=== PATIENT | female | born 1945 | race African-American/Black ===

== ENCOUNTER 2017-12-25 16:24 | Inpatient (IN) | payer MEDICARE, BC ==
[~2017-12-25] VITALS: Ht 162.6 cm; Wt 91.2 kg
[2017-12-25] MEDS ORDERED: ACETAMINOPHEN 650MG SUPP ONE (17:24)
[2017-12-25] MEDS ORDERED: CEFTRIAXONE 1 G PREMIX 50 ML IV NR (18:00)
[2017-12-25] MEDS ORDERED: LEVOFLOXACIN 500MG PREMIX 100 ML IV NR (18:00)
[2017-12-25] MEDS ORDERED: ACETAMINOPHEN 650MG SUPP PR STA (18:03)
[2017-12-25 18:05] LABS: HEMATOCRIT. 33.1 % (36.0-48.0); HEMOGLOBIN. 10.9 g/dL (12.0-16.0); MEAN CORPUSCULAR HEMOGLOBIN 28.4 pg (28.0-32.0); MEAN CORPUSCULAR VOLUME 86.4 fL (81.0-99.0); MEAN PLATELET VOLUME 8.5 fl (7.4-10.4); PLATELET 157 x1000/uL (130-400); RED BLOOD CELL COUNT 3.83 mill/uL (4.2-5.4); RED CELL DISTRIBUTION WIDTH 13.6 % (11.6-14.6)
[2017-12-25 18:09] LABS: CARBON DIOXIDE 22 mEq/L (21-32); CHLORIDE 96 mEq/L (98-107)
[2017-12-25 18:17] LABS: TROPONIN I 0.03 ng/mL (0.00-0.04)
[2017-12-25 18:35] LABS: PLATELET ESTIMATE NORMAL
[2017-12-25] MEDS: SODIUM CHLORIDE 0.9% 2,300 ML IV NR ×2 (20:13→20:18)
[2017-12-25 20:21] LABS: CLARITY URINE CLEAR (CLEAR); COLOR URINE YELLOW (YELLOW); KETONES URINE 1+ (NEGATIVE); LEUKOCYTE ESTERASE URINE 1+ (NEGATIVE); NITRITE URINE NEGATIVE (NEGATIVE); OCCULT BLOOD URINE 1+ (NEGATIVE); PROTEIN URINE 2+ (NEGATIVE); SPECIFIC GRAVITY URINE 1.017 (1.005-1.030)
[2017-12-25] MEDS ORDERED: ACETAMINOPHEN 650MG SUPP PR NR (20:30)
[2017-12-25] MEDS ORDERED: GUAIFENESIN 200MG/10ML SUGAR FREE UDC PO PRN (21:30)
[2017-12-25] MEDS ORDERED: PIPERACILLIN/TAZ 3.375G PREMIX 50 ML IV SCH (21:30)
[2017-12-25] MEDS ORDERED: DIPHENHYDRAMINE 50MG/ML VIAL IV PRN (21:30)
[2017-12-25] MEDS ORDERED: IPRATROPIUM/ALBUTEROL 0.5-3(2.5)MG/3ML NEB INH PRN (21:30)
[2017-12-25] MEDS ORDERED: ONDANSETRON HCL 4MG/2ML VIAL IV PRN (21:30)
[2017-12-25] MEDS ORDERED: PIPERACILLIN/TAZ 2.25G PREMIX 50 ML IV NR (22:00)
[2017-12-26] VITALS (15 sets, daily range): BP systolic 142–174; BP diastolic 59–83
[2017-12-26 05:17] LABS: HEMATOCRIT. 28.1 % (36.0-48.0); HEMOGLOBIN. 9.3 g/dL (12.0-16.0); MEAN CORPUSCULAR HEMOGLOBIN 28.5 pg (28.0-32.0); MEAN CORPUSCULAR VOLUME 86.2 fL (81.0-99.0); MEAN PLATELET VOLUME 8.1 fl (7.4-10.4); PLATELET 121 x1000/uL (130-400); RED BLOOD CELL COUNT 3.26 mill/uL (4.2-5.4); RED CELL DISTRIBUTION WIDTH 13.5 % (11.6-14.6)
[2017-12-26 05:37] LABS: CARBON DIOXIDE 22 mEq/L (21-32); CHLORIDE 100 mEq/L (98-107)
[2017-12-26 06:18] LABS: PLATELET ESTIMATE NORMAL
[2017-12-26] MEDS ORDERED: DEXTROSE 50% WATER 50ML SYRINGE IV PRN (11:15)
[2017-12-26 12:33] LABS: HEPATITIS B SURFACE ANTIGEN NEGATIVE
[2017-12-26] MEDS: INSULIN LISPRO 100 UNITS/ML SUBCUT SCH ×3 (12:50→22:33)
[2017-12-26 12:52] LABS: INR 1.1; PARTIAL THROMBOPLASTIN TIME 33.4 sec (23.4-31.0); PROTHROMBIN TIME 11.9 sec (9.4-11.6)
[2017-12-26] MEDS: BLOOD SUGAR DIAGNOSTIC STRIP TEST SCH ×3 (12:59→22:33)
[2017-12-26 13:00] LABS: HEPATITIS B CORE AB IGM NEGATIVE
[2017-12-26] MEDS ORDERED: LIDOCAINE HCL 1% 20ML VIAL (Pyxis) INJ ONE (13:01)
[2017-12-26] MEDS ORDERED: SODIUM BICARBONATE 4% (2.4MEQ) 5ML VIAL IV ONE (13:01)
[2017-12-26 13:02] LABS: HEPATITIS A AB IGM NEGATIVE (NEGATIVE)
[2017-12-26] MEDS ORDERED: FENTANYL CITRATE/PF 50MCG/ML 2ML VIAL IV ONE (14:15)
[2017-12-26] MEDS ORDERED: FENTANYL CITRATE/PF 50MCG/ML 2ML VIAL ONE (14:16)
[2017-12-26] MEDS: AMLODIPINE 10MG TABLET PO SCH (15:05)
[2017-12-26] MEDS: PIPERACILLIN/TAZ 2.25G PREMIX 50 ML IV SCH ×3 (15:05→23:41)
[2017-12-26] MEDS: ASPIRIN 81MG EC TABLET PO SCH (15:06)
[2017-12-26] MEDS: FLUCONAZOLE 100 MG/50ML BAG 100 MG in BAG 0 EACH IV SCH (16:28)
[2017-12-27] VITALS (10 sets, daily range): BP systolic 115–167; BP diastolic 59–98
[2017-12-27] MEDS: PIPERACILLIN/TAZ 2.25G PREMIX 50 ML IV SCH ×3 (06:32→23:09)
[2017-12-27] MEDS: BLOOD SUGAR DIAGNOSTIC STRIP TEST SCH ×4 (06:33→20:22)
[2017-12-27] MEDS: ASPIRIN 81MG EC TABLET PO SCH (09:04)
[2017-12-27] MEDS: AMLODIPINE 10MG TABLET PO SCH (09:04)
[2017-12-27] MEDS: INSULIN LISPRO 100 UNITS/ML SUBCUT SCH ×4 (09:09→20:21)
[2017-12-27 10:54] LABS: HEMATOCRIT. 25.7 % (36.0-48.0); HEMOGLOBIN. 8.7 g/dL (12.0-16.0); MEAN CORPUSCULAR HEMOGLOBIN 28.8 pg (28.0-32.0); MEAN CORPUSCULAR VOLUME 85.6 fL (81.0-99.0); MEAN PLATELET VOLUME 8.6 fl (7.4-10.4); PLATELET 106 x1000/uL (130-400); RED CELL DISTRIBUTION WIDTH 13.4 % (11.6-14.6)
[2017-12-27] MEDS: FLUCONAZOLE 100 MG/50ML BAG 100 MG in BAG 0 EACH IV SCH (12:38)
[2017-12-27 13:20] LABS: PLATELET ESTIMATE SLIGHTLY DECREASED
[2017-12-27] MEDS: ACETAMINOPHEN 325MG TABLET PO PRN (13:36)
[2017-12-27] MEDS ORDERED: SODIUM CHLORIDE 0.9% 250 ML IV ONE (14:00)
[2017-12-27 14:29] LABS: BG BASE EXCESS -2.8 mmol/L (-2.0-2.0); BG CARBOXYHEMOGLOBIN 0.1 % (0.5-1.5); BG DEOXYHEMOGLOBIN 8.4 % (0.0-5.0); BG HCO3 ACT 19.8 mmol/L (22.0-26.0); BG METHEMOGLOBIN 0.6 % (0.0-1.5); BG OXYGEN SATURATION 91.5 % (92.0-98.5); BG OXYHEMOGLOBIN 90.9 % (94.0-97.0); BG PCO2 26.6 mmHg (35.0-45.0); BG PH 7.489 (7.350-7.450); BG PO2 60.5 mmHg (75.0-100.0); BG SAMPLE SITE RIGHT RADIAL; BG TOTAL HEMOGLOBIN 9.2 g/dL (12.0-18.0); BG VENT MODE NASAL CANNULA
[2017-12-27 14:41] LABS: HEMATOCRIT. 25.2 % (36.0-48.0); HEMOGLOBIN. 8.5 g/dL (12.0-16.0); MEAN CORPUSCULAR HEMOGLOBIN 28.6 pg (28.0-32.0); MEAN CORPUSCULAR VOLUME 85.3 fL (81.0-99.0); MEAN PLATELET VOLUME 8.6 fl (7.4-10.4); PLATELET 106 x1000/uL (130-400); RED BLOOD CELL COUNT 2.96 mill/uL (4.2-5.4); RED CELL DISTRIBUTION WIDTH 13.8 % (11.6-14.6)
[2017-12-27] MEDS: CLONIDINE 0.1MG TABLET PO PRN (14:46)
[2017-12-27 15:15] LABS: PLATELET ESTIMATE DECREASED
[2017-12-27] MEDS: SODIUM CHLORIDE 0.9% 1,000 ML IV SCH (16:52)
[2017-12-27] MEDS: MICAFUNGIN 100 MG in SODIUM CHLORIDE 0.9% 100 ML IV SCH (17:46)
[2017-12-27] MEDS ORDERED: HEPARIN SODIUM 1,000 UNIT/1ML VIAL IV NR (22:00)
[2017-12-28] VITALS (12 sets, daily range): BP systolic 123–148; BP diastolic 29–87
[2017-12-28] MEDS: PIPERACILLIN/TAZ 2.25G PREMIX 50 ML IV SCH ×2 (05:28→13:33)
[2017-12-28 06:46] LABS: HEMATOCRIT. 22.9 % (36.0-48.0); HEMOGLOBIN. 7.7 g/dL (12.0-16.0); MEAN CORPUSCULAR HEMOGLOBIN 29.1 pg (28.0-32.0); MEAN PLATELET VOLUME 9.2 fl (7.4-10.4); PLATELET 70 x1000/uL (130-400); RED BLOOD CELL COUNT 2.67 mill/uL (4.2-5.4); RED CELL DISTRIBUTION WIDTH 13.8 % (11.6-14.6)
[2017-12-28 07:14] LABS: INR 1.2; PARTIAL THROMBOPLASTIN TIME 31.6 sec (23.4-31.0)
[2017-12-28] MEDS ORDERED: LIDOCAINE HCL 1% 20ML VIAL (Pyxis) INJ ONE (07:36)
[2017-12-28] MEDS: BLOOD SUGAR DIAGNOSTIC STRIP TEST SCH ×4 (07:58→21:52)
[2017-12-28] MEDS: AMLODIPINE 10MG TABLET PO SCH (09:25)
[2017-12-28] MEDS: ASPIRIN 81MG EC TABLET PO SCH (09:25)
[2017-12-28] MEDS: INSULIN LISPRO 100 UNITS/ML SUBCUT SCH ×4 (09:27→22:32)
[2017-12-28 10:08] LABS: PLATELET ESTIMATE DECREASED
[2017-12-28] MEDS: MICAFUNGIN 100 MG in SODIUM CHLORIDE 0.9% 100 ML IV SCH (17:25)
[2017-12-29] VITALS (12 sets, daily range): BP systolic 124–158; BP diastolic 57–82
[2017-12-29 06:38] LABS: BASOPHILS % 0.2 % (0.0-2.0); EOSINOPHILS % 1.7 % (0.0-5.0); HEMATOCRIT. 24.2 % (36.0-48.0); HEMOGLOBIN. 8.3 g/dL (12.0-16.0); LYMPHOCYTES % 8.3 % (20.0-50.0); MEAN CORPUSCULAR HEMOGLOBIN 29.2 pg (28.0-32.0); MEAN CORPUSCULAR VOLUME 85.5 fL (81.0-99.0); MEAN PLATELET VOLUME 9.1 fl (7.4-10.4); MONOCYTES % 7.6 % (2.0-8.0); NEUTROPHILS % 82.2 % (40.0-76.0); PLATELET 70 x1000/uL (130-400); RED BLOOD CELL COUNT 2.84 mill/uL (4.2-5.4); RED CELL DISTRIBUTION WIDTH 13.5 % (11.6-14.6)
[2017-12-29] MEDS: DOCUSATE SODIUM 100MG CAPSULE PO PRN (06:54)
[2017-12-29] MEDS: SODIUM CHLORIDE 0.9% 1,000 ML IV SCH (06:55)
[2017-12-29] MEDS: BLOOD SUGAR DIAGNOSTIC STRIP TEST SCH ×4 (07:30→20:45)
[2017-12-29] MEDS: INSULIN LISPRO 100 UNITS/ML SUBCUT SCH ×4 (08:00→20:45)
[2017-12-29] MEDS: AMLODIPINE 10MG TABLET PO SCH (09:00)
[2017-12-29] MEDS: ASPIRIN 81MG EC TABLET PO SCH (09:00)
[2017-12-29] MEDS ORDERED: HEPARIN SODIUM 1,000 UNIT/1ML VIAL IV NR (09:36)
[2017-12-29] MEDS: MICAFUNGIN 100 MG in SODIUM CHLORIDE 0.9% 100 ML IV SCH (13:41)
[2017-12-29] MEDS: CLONIDINE 0.1MG TABLET PO PRN (16:59)
[2017-12-29] MEDS: ACETAMINOPHEN 325MG TABLET PO PRN (17:38)
[2017-12-30] VITALS (10 sets, daily range): BP systolic 122–152; BP diastolic 59–80
[2017-12-30 06:08] LABS: HEMATOCRIT. 23.2 % (36.0-48.0); HEMOGLOBIN. 7.9 g/dL (12.0-16.0); MEAN CORPUSCULAR HEMOGLOBIN 29.2 pg (28.0-32.0); MEAN CORPUSCULAR VOLUME 85.5 fL (81.0-99.0); MEAN PLATELET VOLUME 9.2 fl (7.4-10.4); PLATELET 52 x1000/uL (130-400); RED BLOOD CELL COUNT 2.72 mill/uL (4.2-5.4); RED CELL DISTRIBUTION WIDTH 13.5 % (11.6-14.6)
[2017-12-30] MEDS: SODIUM CHLORIDE 0.9% 1,000 ML IV SCH (06:43)
[2017-12-30] MEDS: BLOOD SUGAR DIAGNOSTIC STRIP TEST SCH ×4 (08:25→21:00)
[2017-12-30] MEDS: ASPIRIN 81MG EC TABLET PO SCH (08:38)
[2017-12-30] MEDS: AMLODIPINE 10MG TABLET PO SCH (08:38)
[2017-12-30] MEDS: INSULIN LISPRO 100 UNITS/ML SUBCUT SCH ×4 (08:48→21:11)
[2017-12-30 10:32] LABS: PLATELET ESTIMATE MARKEDLY DECREASED
[2017-12-30] MEDS: MICAFUNGIN 100 MG in SODIUM CHLORIDE 0.9% 100 ML IV SCH (13:04)
[2017-12-31] VITALS (8 sets, daily range): BP systolic 147–175; BP diastolic 66–88
[2017-12-31] MEDS: DOCUSATE SODIUM 100MG CAPSULE PO PRN (06:08)
[2017-12-31 06:43] LABS: HEMATOCRIT. 23.2 % (36.0-48.0); HEMOGLOBIN. 7.9 g/dL (12.0-16.0); MEAN CORPUSCULAR HEMOGLOBIN 28.8 pg (28.0-32.0); MEAN CORPUSCULAR VOLUME 84.8 fL (81.0-99.0); MEAN PLATELET VOLUME 9.6 fl (7.4-10.4); PLATELET 57 x1000/uL (130-400); RED BLOOD CELL COUNT 2.73 mill/uL (4.2-5.4); RED CELL DISTRIBUTION WIDTH 13.5 % (11.6-14.6)
[2017-12-31] MEDS: BLOOD SUGAR DIAGNOSTIC STRIP TEST SCH ×2 (07:30→12:26)
[2017-12-31] MEDS: INSULIN LISPRO 100 UNITS/ML SUBCUT SCH ×2 (08:00→14:51)
[2017-12-31 12:33] LABS: PLATELET ESTIMATE DECREASED
[2017-12-31] MEDS: AMLODIPINE 10MG TABLET PO SCH (14:42)
[2017-12-31] MEDS: ASPIRIN 81MG EC TABLET PO SCH (14:42)
[2017-12-31] MEDS: MICAFUNGIN 100 MG in SODIUM CHLORIDE 0.9% 100 ML IV SCH (15:07)
[2017-12-31] MEDS ORDERED: EPOETIN ALFA 10000UNITS/ML VIAL SUBCUT SCH (21:00)
== END 2017-12-31 17:00 | DRG 871 ==
LOC: ER 16:38 → SUPCPDRO 21:28 → 6WST 21:41 → 5EST 12-27 15:13
PROVIDERS: ADMIT Hospitalist; ATTEND Hospitalist
PROC: 0JH63XZ Insertion of Tunneled Vascular Access Device into Chest Subcutaneous Tissue and Fascia, Percutaneous Approach (ICD-10-PCS; principal; 2017-12-26)
PROC: 02HV33Z Insertion of Infusion Device into Superior Vena Cava, Percutaneous Approach (ICD-10-PCS; 2017-12-26)
PROC: 5A1D70Z Performance of Urinary Filtration, Intermittent, Less than 6 Hours Per Day (ICD-10-PCS; 2017-12-26)
PROC: B5181ZA Fluoroscopy of Superior Vena Cava using Low Osmolar Contrast, Guidance (ICD-10-PCS; 2017-12-26)
PROC: 5A1D70Z Performance of Urinary Filtration, Intermittent, Less than 6 Hours Per Day (ICD-10-PCS; 2017-12-27)
PROC: 02HV33Z Insertion of Infusion Device into Superior Vena Cava, Percutaneous Approach (ICD-10-PCS; 2017-12-28)
PROC: 0JPT3XZ Removal of Tunneled Vascular Access Device from Trunk Subcutaneous Tissue and Fascia, Percutaneous Approach (ICD-10-PCS; 2017-12-28)
PROC: 02PYX3Z Removal of Infusion Device from Great Vessel, External Approach (ICD-10-PCS; 2017-12-28)
PROC: 5A1D70Z Performance of Urinary Filtration, Intermittent, Less than 6 Hours Per Day (ICD-10-PCS; 2017-12-29)
DX: A41.9 Sepsis, unspecified organism (principal); E43 Unspecified severe protein-calorie malnutrition; N17.9 Acute kidney failure, unspecified; J81.1 Chronic pulmonary edema; E11.65 Type 2 diabetes mellitus with hyperglycemia; D69.6 Thrombocytopenia, unspecified; E11.22 Type 2 diabetes mellitus with diabetic chronic kidney disease; E87.1 Hypo-osmolality and hyponatremia; N18.6 End stage renal disease; B37.49 Other urogenital candidiasis; I12.0 Hypertensive chronic kidney disease with stage 5 chronic kidney disease or end stage renal disease; N39.0 Urinary tract infection, site not specified; E87.5 Hyperkalemia; D63.1 Anemia in chronic kidney disease; E66.9 Obesity, unspecified; F03.90 Unspecified dementia, unspecified severity, without behavioral disturbance, psychotic disturbance, mood disturbance, and anxiety; Z82.49 Family history of ischemic heart disease and other diseases of the circulatory system; Z99.2 Dependence on renal dialysis; Z91.15 Patient's noncompliance with renal dialysis; Z85.3 Personal history of malignant neoplasm of breast; Z68.34 Body mass index [BMI] 34.0-34.9, adult
CPT/HCPCS: 36415; 36569; 36589; 36600; 71045; 76770; 76937; 77001; 80048; 80053; 81001; 82375; 82805; 82962; 83605; 84484; 85025; 85610; 85730; 86705; 86709; 86803; 87040; 87086; 87106; 87340; 87804; 93306; 93970; 96361; 96365; 96366; 96367; 96368; 99291; C1750; C1752; C1769; J0696; J1450; J1642; J1644; J1815; J1956; J2248; J2543; J3010; J3490; J7030; J7040; J7050; J7620; A4315

== ENCOUNTER 2018-02-04 15:20 | Inpatient (IN) | payer MEDICARE, BC ==
[~2018-02-04] VITALS: Ht 162.6 cm; Wt 75.3 kg
[2018-02-04 14:30] VITALS: BP 179/102
[~2018-02-04 15:20] MED LIST: ACET-2178 PO; AMLO10TA80 PO; ASPI-1159 PO; ATROV INH; CARV3.1242 PO; CLON0.1T PO; DIPH25CA83 PO; DOCU-150 PO; GUAI-735 PO; LACT10SO6 MT; MOM PO; ONDA4SOL2 PO; POLY250017 PO; SEVE800T8 PO
[2018-02-04] MEDS ORDERED: CLONIDINE 0.1MG TABLET PO PRN (17:00)
[2018-02-04] MEDS: BLOOD SUGAR DIAGNOSTIC STRIP TEST SCH ×2 (17:00→21:06)
[2018-02-04] MEDS ORDERED: ACETAMINOPHEN 650MG/20.3ML UDC PO PRN (17:00)
[2018-02-04] MEDS ORDERED: LACTULOSE 20G/30ML UDC PO PRN (17:00)
[2018-02-04] MEDS ORDERED: MAGNESIUM HYDROXIDE 400MG/5ML 30ML UDC PO PRN (17:00)
[2018-02-04] MEDS: INSULIN LISPRO 100 UNITS/ML SUBCUT SCH ×2 (17:00→21:16)
[2018-02-04] MEDS ORDERED: DEXTROSE 50% WATER 50ML SYRINGE IV PRN (17:00)
[2018-02-04] MEDS ORDERED: ONDANSETRON HCL 4MG/2ML VIAL IV PRN (17:20)
[2018-02-04 17:49] VITALS: BP 179/102
[2018-02-04] MEDS: DOCUSATE SODIUM 100MG CAPSULE PO SCH (18:39)
[2018-02-04] MEDS: RIVAROXABAN 15 MG TABLET PO SCH (18:39)
[2018-02-04 20:00] VITALS: BP 149/62
[2018-02-04] MEDS ORDERED: NA PHOS,M-B/NA PHOS,DI-BA ENEMA 118ML PR PRN (21:00)
[2018-02-04] MEDS: CARVEDILOL 3.125 MG TABLET PO SCH (21:22)
[2018-02-04] MEDS: PHENYLEPHRINE/SHK LV/MO/PET,WH RECTAL OINT 30GM PR SCH (21:23)
[2018-02-04] MEDS: MICAFUNGIN 100 MG in SODIUM CHLORIDE 0.9% 100 ML IV SCH (21:23)
[2018-02-05] MEDS: PHENYLEPHRINE/SHK LV/MO/PET,WH RECTAL OINT 30GM PR SCH ×4 (06:11→18:54)
[2018-02-05] MEDS: BLOOD SUGAR DIAGNOSTIC STRIP TEST SCH ×4 (06:11→21:39)
[2018-02-05] MEDS: PANTOPRAZOLE 40MG DR TABLET PO SCH (06:12)
[2018-02-05 07:17] LABS: BASOPHILS % 1.4 % (0.0-2.0); EOSINOPHILS % 7.6 % (0.0-5.0); HEMATOCRIT. 28.8 % (36.0-48.0); HEMOGLOBIN. 9.7 g/dL (12.0-16.0); LYMPHOCYTES % 22.6 % (20.0-50.0); MEAN CORPUSCULAR VOLUME 89.2 fL (81.0-99.0); MEAN PLATELET VOLUME 7.8 fl (7.4-10.4); MONOCYTES % 9.5 % (2.0-8.0); NEUTROPHILS % 58.9 % (40.0-76.0); PLATELET 242 x1000/uL (130-400); RED BLOOD CELL COUNT 3.23 mill/uL (4.2-5.4); RED CELL DISTRIBUTION WIDTH 16.3 % (11.6-14.6)
[2018-02-05] MEDS: INSULIN LISPRO 100 UNITS/ML SUBCUT SCH ×4 (07:38→21:45)
[2018-02-05 07:53] LABS: CHLORIDE 106 mEq/L (98-107)
[2018-02-05 08:00] VITALS: BP 179/71
[2018-02-05] MEDS: RIVAROXABAN 15 MG TABLET PO SCH ×2 (09:07→17:20)
[2018-02-05] MEDS: ASPIRIN 81MG EC TABLET PO SCH (09:07)
[2018-02-05] MEDS: DOCUSATE SODIUM 100MG CAPSULE PO SCH ×2 (09:07→17:20)
[2018-02-05] MEDS: AMLODIPINE 10MG TABLET PO SCH (09:08)
[2018-02-05] MEDS: CARVEDILOL 3.125 MG TABLET PO SCH (09:08)
[2018-02-05] MEDS ORDERED: HYDROCORTISONE ACETATE 25MG SUPP PR STA (11:00)
[2018-02-05] MEDS ORDERED: POTASSIUM CHLORIDE 20MEQ TABLET SR PO SCH (12:30)
[2018-02-05 13:14] LABS: BASOPHILS % 1.1 % (0.0-2.0); HEMATOCRIT. 28.3 % (36.0-48.0); HEMOGLOBIN. 9.6 g/dL (12.0-16.0); LYMPHOCYTES % 20.5 % (20.0-50.0); MEAN CORPUSCULAR HEMOGLOBIN 30.3 pg (28.0-32.0); MEAN CORPUSCULAR VOLUME 89.7 fL (81.0-99.0); MEAN PLATELET VOLUME 7.8 fl (7.4-10.4); MONOCYTES % 9.1 % (2.0-8.0); NEUTROPHILS % 63.3 % (40.0-76.0); PLATELET 238 x1000/uL (130-400); RED BLOOD CELL COUNT 3.16 mill/uL (4.2-5.4); RED CELL DISTRIBUTION WIDTH 16.7 % (11.6-14.6)
[2018-02-05 20:00] VITALS: BP 156/74
[2018-02-05] MEDS: CARVEDILOL 6.25 MG TABLET PO SCH (21:39)
[2018-02-05] MEDS: POLYETHYLENE GLYCOL 3350 (17GM) 1 DOSE PACK PO SCH (21:39)
[2018-02-05] MEDS: MICAFUNGIN 100 MG in SODIUM CHLORIDE 0.9% 100 ML IV SCH (21:40)
[2018-02-06] MEDS: PHENYLEPHRINE/SHK LV/MO/PET,WH RECTAL OINT 30GM PR SCH ×4 (00:03→18:27)
[2018-02-06] MEDS: PANTOPRAZOLE 40MG DR TABLET PO SCH (05:44)
[2018-02-06] MEDS: INSULIN LISPRO 100 UNITS/ML SUBCUT SCH ×4 (05:50→22:18)
[2018-02-06] MEDS: BLOOD SUGAR DIAGNOSTIC STRIP TEST SCH ×4 (05:50→21:00)
[2018-02-06 08:00] VITALS: BP 164/62
[2018-02-06] MEDS: DOCUSATE SODIUM 100MG CAPSULE PO SCH ×2 (09:26→18:26)
[2018-02-06] MEDS: RIVAROXABAN 15 MG TABLET PO SCH ×2 (09:26→18:26)
[2018-02-06] MEDS: ASPIRIN 81MG EC TABLET PO SCH (09:26)
[2018-02-06] MEDS: CARVEDILOL 6.25 MG TABLET PO SCH ×2 (09:27→22:03)
[2018-02-06] MEDS: AMLODIPINE 10MG TABLET PO SCH (09:27)
[2018-02-06 12:29] LABS: BASOPHILS % 1.4 % (0.0-2.0); EOSINOPHILS % 5.9 % (0.0-5.0); HEMATOCRIT. 29.6 % (36.0-48.0); HEMOGLOBIN. 9.8 g/dL (12.0-16.0); LYMPHOCYTES % 20.9 % (20.0-50.0); MEAN CORPUSCULAR HEMOGLOBIN 29.7 pg (28.0-32.0); MEAN PLATELET VOLUME 7.1 fl (7.4-10.4); MONOCYTES % 7.6 % (2.0-8.0); NEUTROPHILS % 64.2 % (40.0-76.0); PLATELET 268 x1000/uL (130-400); RED BLOOD CELL COUNT 3.29 mill/uL (4.2-5.4); RED CELL DISTRIBUTION WIDTH 17.1 % (11.6-14.6)
[2018-02-06 20:00] VITALS: BP 188/89
[2018-02-06] MEDS: POLYETHYLENE GLYCOL 3350 (17GM) 1 DOSE PACK PO SCH (22:02)
[2018-02-06] MEDS: MICAFUNGIN 100 MG in SODIUM CHLORIDE 0.9% 100 ML IV SCH (22:03)
[2018-02-07] MEDS: PHENYLEPHRINE/SHK LV/MO/PET,WH RECTAL OINT 30GM PR SCH ×4 (02:28→16:58)
[2018-02-07] MEDS: BLOOD SUGAR DIAGNOSTIC STRIP TEST SCH ×4 (06:38→21:49)
[2018-02-07] MEDS: PANTOPRAZOLE 40MG DR TABLET PO SCH (06:39)
[2018-02-07] MEDS: INSULIN LISPRO 100 UNITS/ML SUBCUT SCH ×4 (06:56→21:00)
[2018-02-07 07:11] LABS: CLARITY URINE TURBID (CLEAR); COLOR URINE RED (YELLOW); KETONES URINE NEGATIVE (NEGATIVE); LEUKOCYTE ESTERASE URINE 2+ (NEGATIVE); NITRITE URINE POSITIVE (NEGATIVE); OCCULT BLOOD URINE 3+ (NEGATIVE); PH URINE 5.5 (4.5-8.0); PROTEIN URINE 2+ (NEGATIVE); UROBILINOGEN URINE 0.2 E.U./dL (0.2-1.0)
[2018-02-07 07:32] LABS: BASOPHILS % 1.3 % (0.0-2.0); EOSINOPHILS % 7.3 % (0.0-5.0); HEMATOCRIT. 24.9 % (36.0-48.0); HEMOGLOBIN. 8.5 g/dL (12.0-16.0); LYMPHOCYTES % 24.9 % (20.0-50.0); MEAN CORPUSCULAR HEMOGLOBIN 30.5 pg (28.0-32.0); MEAN PLATELET VOLUME 7.8 fl (7.4-10.4); MONOCYTES % 10.5 % (2.0-8.0); PLATELET 212 x1000/uL (130-400); RED BLOOD CELL COUNT 2.77 mill/uL (4.2-5.4); RED CELL DISTRIBUTION WIDTH 16.8 % (11.6-14.6)
[2018-02-07 08:00] VITALS: BP 116/62
[2018-02-07 08:48] LABS: PHOSPHORUS 3.2 mg/dL (2.5-4.9)
[2018-02-07] MEDS: AMLODIPINE 10MG TABLET PO SCH (09:47)
[2018-02-07] MEDS: DOCUSATE SODIUM 100MG CAPSULE PO SCH ×2 (09:47→16:58)
[2018-02-07] MEDS: ASPIRIN 81MG EC TABLET PO SCH (09:47)
[2018-02-07] MEDS: RIVAROXABAN 15 MG TABLET PO SCH ×2 (09:49→16:58)
[2018-02-07] MEDS: CARVEDILOL 6.25 MG TABLET PO SCH ×2 (09:49→21:56)
[2018-02-07 20:00] VITALS: BP 127/62
[2018-02-07] MEDS: POLYETHYLENE GLYCOL 3350 (17GM) 1 DOSE PACK PO SCH (21:56)
[2018-02-07] MEDS: MICAFUNGIN 100 MG in SODIUM CHLORIDE 0.9% 100 ML IV SCH (21:56)
[2018-02-08] MEDS: PHENYLEPHRINE/SHK LV/MO/PET,WH RECTAL OINT 30GM PR SCH ×4 (02:46→18:00)
[2018-02-08] MEDS: BLOOD SUGAR DIAGNOSTIC STRIP TEST SCH ×4 (06:34→21:59)
[2018-02-08] MEDS: INSULIN LISPRO 100 UNITS/ML SUBCUT SCH ×4 (06:40→22:07)
[2018-02-08 08:00] VITALS: BP 143/64
[2018-02-08] MEDS ORDERED: FAMOTIDINE 20MG TABLET PO SCH (09:00)
[2018-02-08] MEDS: ASPIRIN 81MG EC TABLET PO SCH (09:13)
[2018-02-08] MEDS: RIVAROXABAN 15 MG TABLET PO SCH ×2 (09:13→17:32)
[2018-02-08] MEDS: DOCUSATE SODIUM 100MG CAPSULE PO SCH ×2 (09:13→17:32)
[2018-02-08] MEDS: CARVEDILOL 6.25 MG TABLET PO SCH ×2 (09:13→22:02)
[2018-02-08] MEDS: AMLODIPINE 10MG TABLET PO SCH (09:13)
[2018-02-08 18:00] LABS: FOLIC ACID (FOLATE) SERUM 5.9 ng/mL (>5.38)
[2018-02-08 20:00] VITALS: BP 145/69
[2018-02-08] MEDS: POLYETHYLENE GLYCOL 3350 (17GM) 1 DOSE PACK PO SCH (21:00)
[2018-02-08] MEDS: MICAFUNGIN 100 MG in SODIUM CHLORIDE 0.9% 100 ML IV SCH (23:12)
[2018-02-09] MEDS: PHENYLEPHRINE/SHK LV/MO/PET,WH RECTAL OINT 30GM PR SCH ×4 (00:13→17:30)
[2018-02-09] MEDS: INSULIN LISPRO 100 UNITS/ML SUBCUT SCH ×4 (06:55→21:00)
[2018-02-09] MEDS: BLOOD SUGAR DIAGNOSTIC STRIP TEST SCH ×4 (06:55→21:02)
[2018-02-09 07:18] LABS: BASOPHILS % 1.7 % (0.0-2.0); HEMATOCRIT. 24.2 % (36.0-48.0); HEMOGLOBIN. 8.3 g/dL (12.0-16.0); LYMPHOCYTES % 26.6 % (20.0-50.0); MEAN CORPUSCULAR HEMOGLOBIN 30.6 pg (28.0-32.0); MEAN CORPUSCULAR VOLUME 89.2 fL (81.0-99.0); MEAN PLATELET VOLUME 7.8 fl (7.4-10.4); NEUTROPHILS % 51.7 % (40.0-76.0); PLATELET 219 x1000/uL (130-400); RED BLOOD CELL COUNT 2.71 mill/uL (4.2-5.4); RED CELL DISTRIBUTION WIDTH 16.9 % (11.6-14.6)
[2018-02-09 08:26] VITALS: BP 116/63
[2018-02-09] MEDS: DOCUSATE SODIUM 100MG CAPSULE PO SCH ×2 (08:56→17:24)
[2018-02-09] MEDS: RIVAROXABAN 15 MG TABLET PO SCH ×2 (08:56→17:24)
[2018-02-09] MEDS: CARVEDILOL 6.25 MG TABLET PO SCH ×2 (08:56→22:15)
[2018-02-09] MEDS: ASPIRIN 81MG EC TABLET PO SCH (08:56)
[2018-02-09] MEDS: AMLODIPINE 10MG TABLET PO SCH (08:56)
[2018-02-09] MEDS ORDERED: POTASSIUM CHLORIDE 20MEQ TABLET SR PO NR (09:00)
[2018-02-09] MEDS: CYANOCOBALAMIN 1000MCG/ML VIAL IM SCH (09:46)
[2018-02-09 20:00] VITALS: BP 131/59
[2018-02-09] MEDS: POLYETHYLENE GLYCOL 3350 (17GM) 1 DOSE PACK PO SCH (21:00)
[2018-02-09] MEDS: MICAFUNGIN 100 MG in SODIUM CHLORIDE 0.9% 100 ML IV SCH (22:11)
[2018-02-10] MEDS: BLOOD SUGAR DIAGNOSTIC STRIP TEST SCH ×4 (06:35→22:00)
[2018-02-10] MEDS: PHENYLEPHRINE/SHK LV/MO/PET,WH RECTAL OINT 30GM PR SCH ×5 (06:35→17:29)
[2018-02-10] MEDS: INSULIN LISPRO 100 UNITS/ML SUBCUT SCH ×4 (06:49→22:36)
[2018-02-10 06:58] LABS: BASOPHILS % 1.3 % (0.0-2.0); EOSINOPHILS % 7.2 % (0.0-5.0); HEMATOCRIT. 24.6 % (36.0-48.0); HEMOGLOBIN. 8.5 g/dL (12.0-16.0); LYMPHOCYTES % 24.6 % (20.0-50.0); MEAN CORPUSCULAR HEMOGLOBIN 31.1 pg (28.0-32.0); MEAN CORPUSCULAR VOLUME 90.6 fL (81.0-99.0); MEAN PLATELET VOLUME 7.6 fl (7.4-10.4); MONOCYTES % 12.3 % (2.0-8.0); NEUTROPHILS % 54.6 % (40.0-76.0); PLATELET 218 x1000/uL (130-400); RED BLOOD CELL COUNT 2.72 mill/uL (4.2-5.4); RED CELL DISTRIBUTION WIDTH 17.2 % (11.6-14.6)
[2018-02-10 08:00] VITALS: BP 158/52
[2018-02-10] MEDS: DOCUSATE SODIUM 100MG CAPSULE PO SCH ×2 (09:15→17:36)
[2018-02-10] MEDS: RIVAROXABAN 15 MG TABLET PO SCH ×2 (09:15→17:00)
[2018-02-10] MEDS: CARVEDILOL 6.25 MG TABLET PO SCH ×2 (09:17→22:21)
[2018-02-10] MEDS: ASPIRIN 81MG EC TABLET PO SCH (09:17)
[2018-02-10] MEDS: AMLODIPINE 10MG TABLET PO SCH (09:17)
[2018-02-10] MEDS: CYANOCOBALAMIN 1000MCG/ML VIAL IM SCH (09:18)
[2018-02-10 15:07] LABS: 25-HYDROXY VITAMIN D3 32 ng/mL (.)
[2018-02-10] MEDS ORDERED: ERGOCALCIFEROL 50000UNITS CAPSULE PO SCH (15:30)
[2018-02-10 20:00] VITALS: BP 110/53
[2018-02-10] MEDS: POLYETHYLENE GLYCOL 3350 (17GM) 1 DOSE PACK PO SCH (22:20)
[2018-02-11] MEDS: PHENYLEPHRINE/SHK LV/MO/PET,WH RECTAL OINT 30GM PR SCH ×5 (01:02→23:46)
[2018-02-11] MEDS: BLOOD SUGAR DIAGNOSTIC STRIP TEST SCH ×4 (06:46→21:00)
[2018-02-11] MEDS: INSULIN LISPRO 100 UNITS/ML SUBCUT SCH ×4 (06:57→22:00)
[2018-02-11 08:00] VITALS: BP 134/55
[2018-02-11] MEDS: DOCUSATE SODIUM 100MG CAPSULE PO SCH ×2 (09:03→17:03)
[2018-02-11] MEDS: ASPIRIN 81MG EC TABLET PO SCH (09:03)
[2018-02-11] MEDS: AMLODIPINE 10MG TABLET PO SCH (09:04)
[2018-02-11] MEDS: RIVAROXABAN 15 MG TABLET PO SCH ×2 (09:04→17:03)
[2018-02-11] MEDS: CARVEDILOL 6.25 MG TABLET PO SCH ×2 (09:04→21:56)
[2018-02-11] MEDS: CYANOCOBALAMIN 1000MCG/ML VIAL IM SCH (09:04)
[2018-02-11 20:00] VITALS: BP 146/62
[2018-02-11] MEDS: POLYETHYLENE GLYCOL 3350 (17GM) 1 DOSE PACK PO SCH (21:54)
[2018-02-12] MEDS: BLOOD SUGAR DIAGNOSTIC STRIP TEST SCH ×4 (05:48→21:14)
[2018-02-12] MEDS: PHENYLEPHRINE/SHK LV/MO/PET,WH RECTAL OINT 30GM PR SCH ×3 (06:08→17:49)
[2018-02-12 06:45] LABS: BASOPHILS % 1.8 % (0.0-2.0); EOSINOPHILS % 7.9 % (0.0-5.0); HEMOGLOBIN. 8.6 g/dL (12.0-16.0); MEAN CORPUSCULAR HEMOGLOBIN 30.8 pg (28.0-32.0); MEAN CORPUSCULAR VOLUME 90.2 fL (81.0-99.0); MEAN PLATELET VOLUME 7.6 fl (7.4-10.4); MONOCYTES % 10.7 % (2.0-8.0); NEUTROPHILS % 49.6 % (40.0-76.0); PLATELET 228 x1000/uL (130-400); RED BLOOD CELL COUNT 2.78 mill/uL (4.2-5.4); RED CELL DISTRIBUTION WIDTH 16.8 % (11.6-14.6)
[2018-02-12] MEDS: INSULIN LISPRO 100 UNITS/ML SUBCUT SCH ×4 (07:03→21:00)
[2018-02-12 08:00] VITALS: BP 137/64
[2018-02-12] MEDS ORDERED: HYDROCORTISONE ACETATE 25MG SUPP PR PRN (09:00)
[2018-02-12] MEDS: RIVAROXABAN 15 MG TABLET PO SCH ×2 (09:43→16:52)
[2018-02-12] MEDS: CYANOCOBALAMIN 1000MCG/ML VIAL IM SCH (09:43)
[2018-02-12] MEDS: DOCUSATE SODIUM 250MG CAPSULE PO SCH ×2 (09:43→16:52)
[2018-02-12] MEDS: ASPIRIN 81MG EC TABLET PO SCH (09:43)
[2018-02-12] MEDS: CARVEDILOL 6.25 MG TABLET PO SCH ×2 (09:45→21:13)
[2018-02-12] MEDS: AMLODIPINE 10MG TABLET PO SCH (09:45)
[2018-02-12 20:00] VITALS: BP 142/63
[2018-02-12] MEDS: POLYETHYLENE GLYCOL 3350 (17GM) 1 DOSE PACK PO SCH (21:11)
[2018-02-13] MEDS: PHENYLEPHRINE/SHK LV/MO/PET,WH RECTAL OINT 30GM PR SCH ×4 (03:08→17:13)
[2018-02-13] MEDS: BLOOD SUGAR DIAGNOSTIC STRIP TEST SCH ×4 (05:52→21:36)
[2018-02-13] MEDS: INSULIN LISPRO 100 UNITS/ML SUBCUT SCH ×4 (05:54→22:06)
[2018-02-13 06:57] LABS: BASOPHILS % 1.4 % (0.0-2.0); EOSINOPHILS % 8.5 % (0.0-5.0); HEMATOCRIT. 27.4 % (36.0-48.0); HEMOGLOBIN. 9.4 g/dL (12.0-16.0); LYMPHOCYTES % 30.8 % (20.0-50.0); MEAN CORPUSCULAR HEMOGLOBIN 30.9 pg (28.0-32.0); MEAN CORPUSCULAR VOLUME 90.6 fL (81.0-99.0); MEAN PLATELET VOLUME 7.6 fl (7.4-10.4); MONOCYTES % 10.3 % (2.0-8.0); PLATELET 261 x1000/uL (130-400); RED BLOOD CELL COUNT 3.03 mill/uL (4.2-5.4); RED CELL DISTRIBUTION WIDTH 16.9 % (11.6-14.6)
[2018-02-13 07:30] VITALS: BP 158/76
[2018-02-13] MEDS: DOCUSATE SODIUM 250MG CAPSULE PO SCH ×2 (08:44→16:30)
[2018-02-13] MEDS: CYANOCOBALAMIN 1000MCG/ML VIAL IM SCH (08:44)
[2018-02-13] MEDS: RIVAROXABAN 15 MG TABLET PO SCH ×2 (08:44→16:30)
[2018-02-13] MEDS: AMLODIPINE 10MG TABLET PO SCH (08:45)
[2018-02-13] MEDS: ASPIRIN 81MG EC TABLET PO SCH (08:45)
[2018-02-13] MEDS: CARVEDILOL 6.25 MG TABLET PO SCH ×2 (08:45→21:57)
[2018-02-13 14:19] LABS: BASOPHILS % 0.8 % (0.0-2.0); EOSINOPHILS % 5.4 % (0.0-5.0); HEMATOCRIT. 30.3 % (36.0-48.0); HEMOGLOBIN. 10.3 g/dL (12.0-16.0); LYMPHOCYTES % 31.6 % (20.0-50.0); MEAN CORPUSCULAR HEMOGLOBIN 31.1 pg (28.0-32.0); MEAN PLATELET VOLUME 7.6 fl (7.4-10.4); NEUTROPHILS % 54.2 % (40.0-76.0); PLATELET 309 x1000/uL (130-400); RED BLOOD CELL COUNT 3.32 mill/uL (4.2-5.4); RED CELL DISTRIBUTION WIDTH 16.9 % (11.6-14.6)
[2018-02-13 19:51] LABS: CLARITY URINE CLOUDY (CLEAR); COLOR URINE ORANGE (YELLOW); KETONES URINE TRACE (NEGATIVE); LEUKOCYTE ESTERASE URINE 2+ (NEGATIVE); NITRITE URINE NEGATIVE (NEGATIVE); OCCULT BLOOD URINE 3+ (NEGATIVE); PROTEIN URINE 3+ (NEGATIVE); UROBILINOGEN URINE 0.2 E.U./dL (0.2-1.0)
[2018-02-13 20:00] VITALS: BP 131/62
[2018-02-13] MEDS: POLYETHYLENE GLYCOL 3350 (17GM) 1 DOSE PACK PO SCH (21:56)
[2018-02-14] MEDS: PHENYLEPHRINE/SHK LV/MO/PET,WH RECTAL OINT 30GM PR SCH ×4 (06:00→17:04)
[2018-02-14] MEDS: BLOOD SUGAR DIAGNOSTIC STRIP TEST SCH ×4 (06:05→21:00)
[2018-02-14] MEDS: INSULIN LISPRO 100 UNITS/ML SUBCUT SCH ×4 (06:22→21:00)
[2018-02-14 08:00] VITALS: BP 174/55
[2018-02-14] MEDS: CYANOCOBALAMIN 1000MCG/ML VIAL IM SCH (09:01)
[2018-02-14] MEDS: CARVEDILOL 6.25 MG TABLET PO SCH ×2 (09:01→22:28)
[2018-02-14] MEDS: DOCUSATE SODIUM 250MG CAPSULE PO SCH ×2 (09:01→17:03)
[2018-02-14] MEDS: RIVAROXABAN 15 MG TABLET PO SCH ×2 (09:01→17:03)
[2018-02-14] MEDS: AMLODIPINE 10MG TABLET PO SCH (09:01)
[2018-02-14] MEDS ORDERED: LEVOFLOXACIN 250MG TABLET PO SCH (14:00)
[2018-02-14 20:00] VITALS: BP 142/59
[2018-02-14] MEDS: POLYETHYLENE GLYCOL 3350 (17GM) 1 DOSE PACK PO SCH (21:00)
[2018-02-15] MEDS: PHENYLEPHRINE/SHK LV/MO/PET,WH RECTAL OINT 30GM PR SCH ×3 (06:00→12:00)
[2018-02-15] MEDS: BLOOD SUGAR DIAGNOSTIC STRIP TEST SCH ×2 (06:11→11:41)
[2018-02-15] MEDS: INSULIN LISPRO 100 UNITS/ML SUBCUT SCH ×2 (06:16→13:01)
[2018-02-15 08:00] VITALS: BP 139/73
[2018-02-15] MEDS: DOCUSATE SODIUM 250MG CAPSULE PO SCH (09:12)
[2018-02-15] MEDS: AMLODIPINE 10MG TABLET PO SCH (09:13)
[2018-02-15] MEDS: CARVEDILOL 6.25 MG TABLET PO SCH (09:13)
[2018-02-15] MEDS: CYANOCOBALAMIN 1000MCG/ML VIAL IM SCH (09:14)
[2018-02-15 11:08] VITALS: BP 104/56
[2018-02-23] MEDS ORDERED: CYANOCOBALAMIN 1000MCG/ML VIAL IM SCH (09:00)
== END 2018-02-15 15:30 | disposition home health service (06) | DRG 73 ==
PROVIDERS: ADMIT Physical Medicine & Rehabilitation Spinal Cord Injury Medicine; ATTEND Hospitalist
DX: G62.81 Critical illness polyneuropathy (principal); N18.6 End stage renal disease; N17.9 Acute kidney failure, unspecified; I82.411 Acute embolism and thrombosis of right femoral vein; E46 Unspecified protein-calorie malnutrition; B49 Unspecified mycosis; I12.0 Hypertensive chronic kidney disease with stage 5 chronic kidney disease or end stage renal disease; N13.2 Hydronephrosis with renal and ureteral calculous obstruction; E87.1 Hypo-osmolality and hyponatremia; N11.1 Chronic obstructive pyelonephritis; E11.22 Type 2 diabetes mellitus with diabetic chronic kidney disease; D72.819 Decreased white blood cell count, unspecified; E87.6 Hypokalemia; R53.81 Other malaise; R26.9 Unspecified abnormalities of gait and mobility; E55.9 Vitamin D deficiency, unspecified; D63.8 Anemia in other chronic diseases classified elsewhere; N30.91 Cystitis, unspecified with hematuria; E66.01 Morbid (severe) obesity due to excess calories; K64.9 Unspecified hemorrhoids; F06.31 Mood disorder due to known physiological condition with depressive features; Z82.49 Family history of ischemic heart disease and other diseases of the circulatory system; Z85.3 Personal history of malignant neoplasm of breast; Z83.3 Family history of diabetes mellitus; Z68.28 Body mass index [BMI] 28.0-28.9, adult; Z79.01 Long term (current) use of anticoagulants
CPT/HCPCS: 36415; 80048; 80053; 80061; 81003; 82270; 82306; 82607; 82728; 82746; 82962; 83036; 83540; 83550; 83735; 84100; 84443; 84630; 85025; 87086; 92523; 93970; 97110; 97112; 97116; 97162; 97167; 97530; 97535; A6261; C1893; G0515; J1815; J2248; J3420; J7040; J7050

== ENCOUNTER 2018-03-28 06:34 | Day surgery (SDC) | payer MEDICARE, BC ==
[~2018-03-28] VITALS: Ht 162.6 cm; Wt 78.9 kg
[2018-03-28] MEDS ORDERED: CIPR-263 PO (09:15)
[2018-03-28] MEDS ORDERED: SENN-101 PO (09:15)
[2018-03-28] MEDS ORDERED: FOLI-43 PO (09:15)
[2018-03-28] MEDS ORDERED: CYAN10009 PO (09:15)
[2018-03-28] MEDS ORDERED: METF1000 PO (09:15)
[2018-03-28] MEDS ORDERED: RIVA10TA PO (09:15)
[2018-03-28] MEDS ORDERED: AMLO10TA80 PO (09:15)
[2018-03-28] MEDS ORDERED: CANA100T PO (09:15)
[2018-03-28] MEDS ORDERED: CARV3.1242 PO (09:15)
[2018-03-28] MEDS ORDERED: INSU3INS8 SUBCUT (09:15)
[2018-03-28] MEDS ORDERED: IOHEXOL-300 100 ML BOTTLE ONE (09:34)
[2018-03-28] MEDS ORDERED: FENTANYL CITRATE/PF 50MCG/ML 2ML VIAL ONE ×2 (10:12→12:52)
[2018-03-28] MEDS ORDERED: PROPOFOL 200MG/20ML VIAL IV ONE (10:12)
[2018-03-28] MEDS ORDERED: MIDAZOLAM HCL 2 MG/2 ML VIAL ONE (10:12)
[2018-03-28] MEDS ORDERED: LIDOCAINE HCL/PF 1% 10 MG/ML 5ML VIAL ONE (10:14)
[2018-03-28] MEDS ORDERED: EPHEDRINE SULFATE 50MG/ML VIAL ONE (10:31)
[2018-03-28] MEDS ORDERED: CEFAZOLIN SODIUM 1000MG/VIAL ONE (10:44)
[2018-03-28] MEDS ORDERED: LEVOFLOXACIN 500MG PREMIX 100 ML IV ONE (10:45)
[2018-03-28] MEDS ORDERED: HYDRALAZINE 20MG/ML VIAL ONE (11:54)
[2018-03-28] MEDS ORDERED: MORPHINE SULFATE 4 MG/ML CPJ (NOT FOR IM USE) IV PRN (12:45)
== END 2018-03-28 13:30 | disposition home or self-care (01) ==
LOC: OR 06:34
PROVIDERS: ATTEND Specialist
DX: N13.2 Hydronephrosis with renal and ureteral calculous obstruction (principal); G62.89 Other specified polyneuropathies; D63.8 Anemia in other chronic diseases classified elsewhere; I12.0 Hypertensive chronic kidney disease with stage 5 chronic kidney disease or end stage renal disease; N18.6 End stage renal disease; E11.22 Type 2 diabetes mellitus with diabetic chronic kidney disease; E66.01 Morbid (severe) obesity due to excess calories; G47.33 Obstructive sleep apnea (adult) (pediatric); E78.4 Other hyperlipidemia; Z79.899 Other long term (current) drug therapy; Z79.4 Long term (current) use of insulin; Z79.01 Long term (current) use of anticoagulants
CPT/HCPCS: 52356; 74018; 82962; 88300; C1769; C2617; J0360; J0690; J1956; J2250; J3010; J3490; J7120; J2704; Q9967

== ENCOUNTER 2022-08-12 11:34 | Inpatient (IN) | payer MEDICARE, BC ==
[~2022-08-12] VITALS: Ht 162.6 cm; Wt 99.8 kg
[~2022-08-12 11:34] MED LIST changes: -ACET-2178 PO; -ASPI-1159 PO; -ATROV INH; +CANA100T PO; +CIPR-263 PO; -CLON0.1T PO; +CYAN-50 PO; -DIPH25CA83 PO; -DOCU-150 PO; +FOLI-43 PO; -GUAI-735 PO; +INSU3INS8 SUBCUT; -LACT10SO6 MT; +METF1000 PO; -MOM PO; -ONDA4SOL2 PO; -POLY250017 PO; +RIVA10TA PO; +SENN-101 PO; -SEVE800T8 PO
[2022-08-12] MEDS ORDERED: SODIUM CHLORIDE 0.9% 1,000 ML IV ONE (13:15)
[2022-08-12 13:23] LABS: HEMATOCRIT. 34.9 % (36.0-48.0); HEMOGLOBIN. 11.7 g/dL (12.0-16.0); MEAN CORPUSCULAR HEMOGLOBIN 31.2 pg (28.0-32.0); PLATELET 126 x1000/uL (130-400); RED BLOOD CELL COUNT 3.76 mill/uL (4.2-5.4); RED CELL DISTRIBUTION WIDTH 13.8 % (11.6-14.6)
[2022-08-12 13:27] LABS: CHLORIDE 105 mEq/L (98-107)
[2022-08-12 13:30] LABS: BG BASE EXCESS -8.2 mmol/L (-2.0-2.0); BG FRACTION INSPIRED OXYGEN 32; BG HCO3 ACT 15.9 mmol/L (22.0-26.0); BG METHEMOGLOBIN 0.1 % (0.0-1.5); BG OXYGEN SATURATION 91.9 % (92.0-98.5); BG OXYHEMOGLOBIN 90.9 % (94.0-97.0); BG PCO2 28.4 mmHg (35.0-45.0); BG PH 7.365 (7.350-7.450); BG PO2 61.4 mmHg (75.0-100.0); BG SAMPLE SITE RIGHT BRACHIAL; BG TOTAL HEMOGLOBIN 11.8 g/dL (12.0-18.0); BG VENT MODE NASAL CANNULA
[2022-08-12 13:38] LABS: BETA HYDROXYBUTYRATE 2.3 mMol/L (0.0-0.3)
[2022-08-12] MEDS ORDERED: SODIUM CHLORIDE 0.9% 1,000 ML IV SCH (14:00)
[2022-08-12] MEDS ORDERED: INSULIN REGULAR (HUMULIN R) 300UNITS/3ML VIAL SUBCUT SCH (14:00)
[2022-08-12 14:11] LABS: PLATELET ESTIMATE SLIGHTLY DECREASED
[2022-08-12] MEDS ORDERED: CALCIUM GLUCONATE 100MG/ML 10ML VIAL IV NR (15:45)
[2022-08-12] MEDS ORDERED: INSULIN LISPRO 100 UNITS/ML SUBCUT NR (22:15)
[2022-08-13] VITALS (7 sets, daily range): BP systolic 119–146; BP diastolic 51–83
[2022-08-13] MEDS ORDERED: INSULIN GLARGINE 100 UNITS/ML SUBCUT SCH (00:45)
[2022-08-13] MEDS ORDERED: MAGNESIUM/ALUMINUM HYDROXIDE/SIMETHICONE 30ML UDC PO PRN (00:45)
[2022-08-13] MEDS ORDERED: ONDANSETRON HCL 4MG/2ML INJ IV PRN (00:45)
[2022-08-13] MEDS ORDERED: DIPHENHYDRAMINE 50MG/ML VIAL IV PRN (00:45)
[2022-08-13] MEDS ORDERED: ACETAMINOPHEN 325MG TABLET PO PRN (00:45)
[2022-08-13] MEDS ORDERED: DEXTROSE 50% WATER 50ML SYRINGE IV PRN (00:45)
[2022-08-13] MEDS: SODIUM CHLORIDE 0.9% 1,000 ML IV SCH ×2 (02:35→09:06)
[2022-08-13] MEDS ORDERED: LETR2.5T7 PO (02:59)
[2022-08-13] MEDS ORDERED: CARV25TA47 PO (03:00)
[2022-08-13] MEDS ORDERED: FURO40TA5 PO (03:01)
[2022-08-13] MEDS ORDERED: LOSA50TA41 PO (03:02)
[2022-08-13] MEDS ORDERED: GLIM2TAB30 PO (03:03)
[2022-08-13] MEDS ORDERED: SIMV-43 PO (03:06)
[2022-08-13] MEDS ORDERED: ASPI-1160 PO (03:06)
[2022-08-13] MEDS ORDERED: DOCU250C69 PO (03:06)
[2022-08-13] MEDS ORDERED: *PATIENT'S OWN MEDICATION STORAGE XX SCH (03:15)
[2022-08-13] MEDS: BLOOD SUGAR DIAGNOSTIC STRIP TEST SCH ×4 (06:49→20:25)
[2022-08-13 07:46] LABS: CLARITY URINE TURBID (CLEAR); COLOR URINE DARK YELLOW (YELLOW); KETONES URINE TRACE (NEGATIVE); LEUKOCYTE ESTERASE URINE 3+ (NEGATIVE); NITRITE URINE NEGATIVE (NEGATIVE); OCCULT BLOOD URINE 3+ (NEGATIVE); PROTEIN URINE 3+ (NEGATIVE); SPECIFIC GRAVITY URINE 1.019 (1.005-1.030); UROBILINOGEN URINE 0.2 E.U./dL (0.2-1.0)
[2022-08-13] MEDS: INSULIN LISPRO 100 UNITS/ML SUBCUT SCH ×4 (09:05→20:31)
[2022-08-13] MEDS: ACETAMINOPHEN 325MG TABLET PO PRN (09:06)
[2022-08-13] MEDS: ENOXAPARIN 40MG/0.4ML SYR SUBCUT SCH (09:08)
[2022-08-13] MEDS ORDERED: CEFTRIAXONE 1 G PREMIX 50 ML IV SCH (12:15)
[2022-08-13] MEDS: SODIUM CHLORIDE 0.45% 1,000 ML IV SCH ×2 (13:38→23:00)
[2022-08-13] MEDS ORDERED: CEFTRIAXONE 1,000 MG in SODIUM CHLORIDE 0.9% 50 ML IV SCH (15:00)
[2022-08-13 15:40] LABS: HEMATOCRIT. 29.6 % (36.0-48.0); HEMOGLOBIN. 10.1 g/dL (12.0-16.0); MEAN CORPUSCULAR HEMOGLOBIN 30.8 pg (28.0-32.0); MEAN CORPUSCULAR VOLUME 90.5 fL (81.0-99.0); MEAN PLATELET VOLUME 9.3 fl (7.4-10.4); PLATELET 100 x1000/uL (130-400); RED BLOOD CELL COUNT 3.27 mill/uL (4.2-5.4)
[2022-08-13 16:05] LABS: CREATINE KINASE 514 IU/L (26-192)
[2022-08-13 17:46] LABS: PLATELET ESTIMATE DECREASED
[2022-08-13] MEDS: INSULIN GLARGINE 100 UNITS/ML SUBCUT SCH (21:09)
[2022-08-14] VITALS: BP 124/52
[2022-08-14 04:00] VITALS: BP 120/50
[2022-08-14] MEDS: BLOOD SUGAR DIAGNOSTIC STRIP TEST SCH ×4 (07:20→21:32)
[2022-08-14 08:00] VITALS: BP 160/70
[2022-08-14 08:29] LABS: BASOPHILS % 0.2 % (0.0-2.0); HEMATOCRIT. 30.1 % (36.0-48.0); HEMOGLOBIN. 10.1 g/dL (12.0-16.0); MEAN CORPUSCULAR HEMOGLOBIN 30.8 pg (28.0-32.0); MEAN PLATELET VOLUME 9.4 fl (7.4-10.4); MONOCYTES % 5.6 % (2.0-8.0); NEUTROPHILS % 84.2 % (40.0-76.0); PLATELET 107 x1000/uL (130-400); RED BLOOD CELL COUNT 3.27 mill/uL (4.2-5.4); RED CELL DISTRIBUTION WIDTH 14.1 % (11.6-14.6)
[2022-08-14] MEDS ORDERED: CEFTRIAXONE 1,000 MG in DEXTROSE 5% WATER 50 ML IV SCH (08:30)
[2022-08-14] MEDS: INSULIN LISPRO 100 UNITS/ML SUBCUT SCH ×4 (08:45→21:40)
[2022-08-14] MEDS: ENOXAPARIN 40MG/0.4ML SYR SUBCUT SCH (08:46)
[2022-08-14] MEDS: SODIUM CHLORIDE 0.45% 1,000 ML IV SCH (08:46)
[2022-08-14] MEDS ORDERED: SODIUM POLYSTYRENE SULFONATE 15 G/60 ML BOT PO SCH (11:00)
[2022-08-14 12:00] VITALS: BP 132/57
[2022-08-14] MEDS: CEFTRIAXONE 1,000 MG in DEXTROSE 5% WATER 50 ML IV SCH (14:35)
[2022-08-14] MEDS: CITRIC ACID/SODIUM CITRATE SOLN 15ML UDC PO SCH ×2 (14:36→16:56)
[2022-08-14 16:00] VITALS: BP 147/66
[2022-08-14] MEDS: ACETAMINOPHEN 325MG TABLET PO PRN (16:23)
[2022-08-14 20:00] VITALS: BP 142/68
[2022-08-14] MEDS: INSULIN GLARGINE 100 UNITS/ML SUBCUT SCH (21:39)
[2022-08-15] VITALS (7 sets, daily range): BP systolic 153–174; BP diastolic 62–75
[2022-08-15] MEDS: SODIUM CHLORIDE 0.45% 1,000 ML IV SCH ×2 (01:03→05:00)
[2022-08-15] MEDS: CLONIDINE 0.1MG TABLET PO PRN ×2 (04:40→09:00)
[2022-08-15] MEDS: BLOOD SUGAR DIAGNOSTIC STRIP TEST SCH ×4 (06:41→21:35)
[2022-08-15 07:03] LABS: BASOPHILS % 0.2 % (0.0-2.0); EOSINOPHILS % 3.3 % (0.0-5.0); HEMATOCRIT. 30.6 % (36.0-48.0); HEMOGLOBIN. 10.3 g/dL (12.0-16.0); LYMPHOCYTES % 11.9 % (20.0-50.0); MEAN CORPUSCULAR HEMOGLOBIN 30.8 pg (28.0-32.0); MEAN CORPUSCULAR VOLUME 91.9 fL (81.0-99.0); MEAN PLATELET VOLUME 9.2 fl (7.4-10.4); MONOCYTES % 8.5 % (2.0-8.0); NEUTROPHILS % 76.1 % (40.0-76.0); PLATELET 109 x1000/uL (130-400); RED BLOOD CELL COUNT 3.33 mill/uL (4.2-5.4); RED CELL DISTRIBUTION WIDTH 13.8 % (11.6-14.6)
[2022-08-15] MEDS: CITRIC ACID/SODIUM CITRATE SOLN 15ML UDC PO SCH ×3 (08:54→17:42)
[2022-08-15] MEDS: ENOXAPARIN 40MG/0.4ML SYR SUBCUT SCH (08:54)
[2022-08-15] MEDS: INSULIN LISPRO 100 UNITS/ML SUBCUT SCH ×4 (08:55→21:34)
[2022-08-15] MEDS ORDERED: AMLODIPINE 5MG TABLET PO SCH (09:15)
[2022-08-15] MEDS: CEFTRIAXONE 1,000 MG in DEXTROSE 5% WATER 50 ML IV SCH (14:23)
[2022-08-15] MEDS: AMLODIPINE 5MG TABLET PO SCH (17:42)
[2022-08-15] MEDS: INSULIN GLARGINE 100 UNITS/ML SUBCUT SCH (21:34)
[2022-08-16 04:00] VITALS: BP 159/63
[2022-08-16] MEDS: BLOOD SUGAR DIAGNOSTIC STRIP TEST SCH ×4 (06:43→21:53)
[2022-08-16 07:05] LABS: PHOSPHORUS 3.8 mg/dL (2.5-4.9)
[2022-08-16 07:15] LABS: BASOPHILS % 0.4 % (0.0-2.0); EOSINOPHILS % 4.9 % (0.0-5.0); HEMATOCRIT. 31.5 % (36.0-48.0); HEMOGLOBIN. 10.5 g/dL (12.0-16.0); LYMPHOCYTES % 17.8 % (20.0-50.0); MEAN CORPUSCULAR HEMOGLOBIN 30.5 pg (28.0-32.0); MEAN CORPUSCULAR VOLUME 91.4 fL (81.0-99.0); MEAN PLATELET VOLUME 8.9 fl (7.4-10.4); MONOCYTES % 13.2 % (2.0-8.0); NEUTROPHILS % 63.7 % (40.0-76.0); PLATELET 123 x1000/uL (130-400); RED BLOOD CELL COUNT 3.45 mill/uL (4.2-5.4); RED CELL DISTRIBUTION WIDTH 13.7 % (11.6-14.6)
[2022-08-16 08:00] VITALS: BP 163/74
[2022-08-16] MEDS: AMLODIPINE 5MG TABLET PO SCH ×2 (08:52→18:09)
[2022-08-16] MEDS: CITRIC ACID/SODIUM CITRATE SOLN 15ML UDC PO SCH ×3 (08:52→18:09)
[2022-08-16] MEDS: ENOXAPARIN 40MG/0.4ML SYR SUBCUT SCH (08:53)
[2022-08-16] MEDS: INSULIN LISPRO 100 UNITS/ML SUBCUT SCH ×4 (08:53→21:53)
[2022-08-16] MEDS ORDERED: MAGNESIUM 2 G PREMIX 50 ML IV NR (11:00)
[2022-08-16 12:00] VITALS: BP 155/68
[2022-08-16] MEDS: CEFTRIAXONE 1,000 MG in DEXTROSE 5% WATER 50 ML IV SCH (15:56)
[2022-08-16 16:00] VITALS: BP 164/67
[2022-08-16] MEDS: SODIUM CHLORIDE 0.45% 1,000 ML IV SCH (18:09)
[2022-08-16 20:00] VITALS: BP 169/72
[2022-08-16] MEDS: CLONIDINE 0.1MG TABLET PO PRN (21:51)
[2022-08-16] MEDS: INSULIN GLARGINE 100 UNITS/ML SUBCUT SCH (21:52)
[2022-08-16] MEDS: CEFEPIME 2,000 MG in DEXT 5% WATER 100 ML IV SCH (22:00)
[2022-08-17] VITALS: BP 152/63
[2022-08-17 04:00] VITALS: BP 147/61
[2022-08-17] MEDS: BLOOD SUGAR DIAGNOSTIC STRIP TEST SCH ×4 (07:20→21:54)
[2022-08-17 08:00] VITALS: BP 144/72
[2022-08-17] MEDS: CEFEPIME 2,000 MG in DEXT 5% WATER 100 ML IV SCH ×2 (09:43→22:10)
[2022-08-17] MEDS: CITRIC ACID/SODIUM CITRATE SOLN 15ML UDC PO SCH ×3 (09:44→18:01)
[2022-08-17] MEDS: ENOXAPARIN 40MG/0.4ML SYR SUBCUT SCH (09:44)
[2022-08-17] MEDS: AMLODIPINE 5MG TABLET PO SCH ×2 (09:44→18:01)
[2022-08-17] MEDS: INSULIN LISPRO 100 UNITS/ML SUBCUT SCH ×4 (09:47→22:12)
[2022-08-17 12:00] VITALS: BP 162/65
[2022-08-17] MEDS: SODIUM CHLORIDE 0.45% 1,000 ML IV SCH (13:02)
[2022-08-17] MEDS: CLONIDINE 0.1MG TABLET PO PRN (13:02)
[2022-08-17 16:00] VITALS: BP 143/7
[2022-08-17 20:12] VITALS: BP 145/70
[2022-08-17] MEDS: INSULIN GLARGINE 100 UNITS/ML SUBCUT SCH (22:13)
[2022-08-18] VITALS (7 sets, daily range): BP systolic 131–163; BP diastolic 67–99
[2022-08-18] MEDS: CLONIDINE 0.1MG TABLET PO PRN (05:28)
[2022-08-18] MEDS: BLOOD SUGAR DIAGNOSTIC STRIP TEST SCH ×4 (08:18→21:27)
[2022-08-18] MEDS: ENOXAPARIN 40MG/0.4ML SYR SUBCUT SCH (08:23)
[2022-08-18] MEDS: CITRIC ACID/SODIUM CITRATE SOLN 15ML UDC PO SCH ×3 (08:23→17:13)
[2022-08-18] MEDS: AMLODIPINE 5MG TABLET PO SCH ×2 (08:24→17:14)
[2022-08-18] MEDS: SODIUM CHLORIDE 0.45% 1,000 ML IV SCH (08:24)
[2022-08-18] MEDS: INSULIN LISPRO 100 UNITS/ML SUBCUT SCH ×4 (08:24→21:28)
[2022-08-18] MEDS ORDERED: LOSARTAN POTASSIUM 25 MG TABLET PO SCH (09:00)
[2022-08-18 10:20] LABS: BASOPHILS % 0.7 % (0.0-2.0); HEMATOCRIT. 33.7 % (36.0-48.0); LYMPHOCYTES % 24.4 % (20.0-50.0); MEAN CORPUSCULAR HEMOGLOBIN 30.4 pg (28.0-32.0); MEAN CORPUSCULAR VOLUME 92.7 fL (81.0-99.0); MEAN PLATELET VOLUME 8.6 fl (7.4-10.4); MONOCYTES % 11.8 % (2.0-8.0); NEUTROPHILS % 57.1 % (40.0-76.0); PLATELET 180 x1000/uL (130-400); RED BLOOD CELL COUNT 3.64 mill/uL (4.2-5.4); RED CELL DISTRIBUTION WIDTH 13.3 % (11.6-14.6)
[2022-08-18] MEDS: MEROPENEM 1,000 MG in SODIUM CHLORIDE 0.9% 100 ML IV SCH ×2 (12:37→23:26)
[2022-08-18] MEDS: INSULIN GLARGINE 100 UNITS/ML SUBCUT SCH (21:28)
[2022-08-19 04:00] VITALS: BP 152/65
[2022-08-19] MEDS: BLOOD SUGAR DIAGNOSTIC STRIP TEST SCH ×2 (07:20→11:50)
[2022-08-19 07:54] LABS: BASOPHILS % 0.6 % (0.0-2.0); HEMATOCRIT. 31.5 % (36.0-48.0); HEMOGLOBIN. 10.8 g/dL (12.0-16.0); LYMPHOCYTES % 25.5 % (20.0-50.0); MEAN CORPUSCULAR HEMOGLOBIN 30.8 pg (28.0-32.0); MEAN CORPUSCULAR VOLUME 90.2 fL (81.0-99.0); MEAN PLATELET VOLUME 8.4 fl (7.4-10.4); MONOCYTES % 10.3 % (2.0-8.0); NEUTROPHILS % 58.6 % (40.0-76.0); PLATELET 217 x1000/uL (130-400); RED CELL DISTRIBUTION WIDTH 13.2 % (11.6-14.6)
[2022-08-19 08:00] VITALS: BP 166/75
[2022-08-19] MEDS: CITRIC ACID/SODIUM CITRATE SOLN 15ML UDC PO SCH (08:38)
[2022-08-19] MEDS: ENOXAPARIN 40MG/0.4ML SYR SUBCUT SCH (08:39)
[2022-08-19] MEDS: AMLODIPINE 5MG TABLET PO SCH (08:39)
[2022-08-19] MEDS: INSULIN LISPRO 100 UNITS/ML SUBCUT SCH ×2 (08:44→13:06)
[2022-08-19] MEDS ORDERED: LOSARTAN POTASSIUM 50 MG TABLET PO SCH ×3 (09:00→17:00)
[2022-08-19] MEDS: MEROPENEM 1,000 MG in SODIUM CHLORIDE 0.9% 100 ML IV SCH (11:12)
[2022-08-19 12:00] VITALS: BP 140/72
[2022-08-19 13:37] VITALS: BP 140/72
== END 2022-08-19 15:30 | disposition home health service (06) | DRG 871 ==
LOC: ER 11:34 → MICUSO 16:30 → EDBEDREQSVC 16:36 → EDBEDREQ 16:36 → ENRESERV 22:02 → 6WST 08-13 00:03
PROVIDERS: ADMIT Internal Medicine; ATTEND Internal Medicine
PROC: 05HY33Z Insertion of Infusion Device into Upper Vein, Percutaneous Approach (ICD-10-PCS; principal; 2022-08-18)
DX: A41.59 Other Gram-negative sepsis (principal); G93.41 Metabolic encephalopathy; E87.1 Hypo-osmolality and hyponatremia; N17.9 Acute kidney failure, unspecified; N39.0 Urinary tract infection, site not specified; J84.9 Interstitial pulmonary disease, unspecified; N10 Acute pyelonephritis; M62.82 Rhabdomyolysis; N12 Tubulo-interstitial nephritis, not specified as acute or chronic; J98.11 Atelectasis; E11.22 Type 2 diabetes mellitus with diabetic chronic kidney disease; E11.65 Type 2 diabetes mellitus with hyperglycemia; R26.9 Unspecified abnormalities of gait and mobility; E86.0 Dehydration; N18.9 Chronic kidney disease, unspecified; I12.9 Hypertensive chronic kidney disease with stage 1 through stage 4 chronic kidney disease, or unspecified chronic kidney disease; E87.5 Hyperkalemia; F03.90 Unspecified dementia, unspecified severity, without behavioral disturbance, psychotic disturbance, mood disturbance, and anxiety; N20.0 Calculus of kidney; K80.20 Calculus of gallbladder without cholecystitis without obstruction; E66.01 Morbid (severe) obesity due to excess calories; D63.1 Anemia in chronic kidney disease; E86.9 Volume depletion, unspecified; Z83.3 Family history of diabetes mellitus; Z87.442 Personal history of urinary calculi; Z68.37 Body mass index [BMI] 37.0-37.9, adult; Z85.3 Personal history of malignant neoplasm of breast
CPT/HCPCS: 36415; 36573; 36600; 71045; 74176; 76770; 80048; 80053; 81003; 82010; 82375; 82550; 82570; 82805; 82962; 83036; 83735; 83880; 84100; 84145; 84156; 84443; 84484; 85025; 87077; 87186; 93005; 97161; 97166; 99285; C1725; C1887; J0610; J0692; J0696; J1650; J1815; J2185; J3475; J7030; J7050; J7060; A4315

== ENCOUNTER 2023-08-17 11:03 | Inpatient (IN) | payer MEDICARE, BC ==
[~2023-08-17] VITALS: Ht 162.6 cm; Wt 91.7 kg
[~2023-08-17 11:03] MED LIST changes: +ASPI-1160 PO; +CARV25TA47 PO; +DOCU250C69 PO; +FURO40TA5 PO; +GLIM2TAB30 PO; +LETR2.5T7 PO; +LOSA50TA41 PO; +SIMV-43 PO
[2023-08-17] MEDS ORDERED: CEFTRIAXONE 1GM PREMIX 50 ML IV ONE (12:00)
[2023-08-17] MEDS ORDERED: SODIUM CHLORIDE 0.9% 1000ML BAG (SEPSIS BOLUS) IV ONE (12:00)
[2023-08-17 15:23] LABS: CHLORIDE 94 mEq/L (98-107); INDEX HEMOLYSI 4 (1-3); INDEX ICTERIC 1 (1-4); INDEX LIPEMIC 1 (1-3); POTASSIUM 6.1 mEq/L (3.5-5.1); SODIUM 124 mEq/L (136-145)
[2023-08-17 15:35] LABS: ALANINE AMINOTRANSFERASE 15 IU/L (13-61); ALBUMIN 2.2 g/dL (3.4-5.0); ASPARTATE AMINOTRANSFERASE 14 IU/L (15-37); BILIRUBIN TOTAL 0.8 mg/dL (0.1-1.0); CALCIUM 8.4 mg/dL (8.5-10.1); CARBON DIOXIDE 13 mEq/L (21-32); TROPONIN I HIGH SENSITIVITY 5 ng/L (<54)
[2023-08-17 16:03] LABS: CLARITY URINE TURBID (CLEAR); COLOR URINE YELLOW (YELLOW); GLUCOSE URINE 2+ (NEGATIVE); KETONES URINE NEGATIVE (NEGATIVE); LEUKOCYTE ESTERASE URINE 3+ (NEGATIVE); NITRITE URINE NEGATIVE (NEGATIVE); OCCULT BLOOD URINE 3+ (NEGATIVE); PROTEIN URINE 2+ (NEGATIVE); SPECIFIC GRAVITY URINE 1.015 (1.005-1.030); UROBILINOGEN URINE 0.2 E.U./dL (0.2-1.0)
[2023-08-17 17:01] LABS: UREA NITROGEN BLOOD 165 mg/dL (7-21)
[2023-08-17 17:02] LABS: CREATININE 8.8 mg/dL (0.6-1.3); GLUCOSE 491 mg/dL (70-105)
[2023-08-17 17:04] LABS: BACTERIA URINE 4+; RBC URINE TNTC /hpf (0-2); SQUAMOUS EPITHELIAL CELL URINE 1+ /lpf (RARE/1+); WBC URINE TNTC /hpf (0-2)
[2023-08-17] MEDS ORDERED: INSULIN REGULAR (HUMULIN R) 300UNITS/3ML VIAL IV ONE (18:30)
[2023-08-17] MEDS ORDERED: AZITHROMYCIN 500 MG in DEXT 5% WATER 250 ML IV SCH (18:45)
[2023-08-17 20:32] LABS: BASOPHILS % 0.1 % (0.0-2.0); EOSINOPHILS % 0.9 % (0.0-5.0); HEMATOCRIT. 32.8 % (36.0-48.0); HEMOGLOBIN. 10.8 g/dL (12.0-16.0); INR 1.1; LYMPHOCYTES % 11.1 % (20.0-50.0); MEAN CORPUSCULAR HEMOGLOBIN 29.6 pg (28.0-32.0); MEAN CORPUSCULAR HGB CONC 32.8 g/dL (31.0-37.0); MEAN CORPUSCULAR VOLUME 90.3 fL (81.0-99.0); MEAN PLATELET VOLUME 11.6 fl (7.4-10.4); MONOCYTES % 4.5 % (2.0-8.0); NEUTROPHILS % 83.4 % (40.0-76.0); PROTHROMBIN TIME 11.5 sec (9.6-11.0); RED BLOOD CELL COUNT 3.63 mill/uL (4.2-5.4); RED CELL DISTRIBUTION WIDTH 14.3 % (11.6-14.6); WHITE BLOOD COUNT 6.3 x1000/uL (4.5-11.0)
[2023-08-17 20:33] LABS: DIFFERENTIAL COMMENT 1
[2023-08-17] MEDS ORDERED: AZITHROMYCIN 500MG/250ML 250 ML IV SCH (20:45)
[2023-08-17 21:00] VITALS: BP 114/54; PULSE 65; RESP 20; TEMP 97
[2023-08-17] MEDS ORDERED: IPRATROPIUM/ALBUTEROL 0.5-3(2.5)MG/3ML NEB HHN PRN (21:00)
[2023-08-17] MEDS ORDERED: CLONIDINE 0.1MG TABLET PO PRN (21:00)
[2023-08-17] MEDS ORDERED: DOCUSATE SODIUM 100MG CAPSULE PO PRN (21:00)
[2023-08-17] MEDS ORDERED: GUAIFENESIN 200MG/10ML SUGAR FREE UDC PO PRN (21:00)
[2023-08-17] MEDS ORDERED: ACETAMINOPHEN 325MG TABLET PO PRN (21:00)
[2023-08-17] MEDS ORDERED: MAGNESIUM/ALUMINUM HYDROXIDE/SIMETHICONE 30ML UDC PO PRN (21:00)
[2023-08-17] MEDS ORDERED: ONDANSETRON HCL 4MG/2ML INJ IV PRN (21:00)
[2023-08-17] MEDS ORDERED: DEXTROSE 50% WATER 50ML SYRINGE IV PRN (22:30)
[2023-08-17] MEDS ORDERED: SODIUM POLYSTYRENE SULFONATE 15 G/60 ML BOT PO NR (22:45)
[2023-08-17] MEDS: ACETAMINOPHEN 325MG TABLET PO PRN (23:39)
[2023-08-18] VITALS (7 sets, daily range): BP systolic 105–134; BP diastolic 55–85; PULSE 60–96; RESP 16–20; TEMP 97.1–97.8
[2023-08-18 03:43] LABS: INDEX HEMOLYSI 1 (1-3)
[2023-08-18 03:54] LABS: CREATINE KINASE 29 IU/L (26-192); TROPONIN I HIGH SENSITIVITY 6 ng/L (<54)
[2023-08-18 04:11] LABS: BETA HYDROXYBUTYRATE 0.3 mMol/L (0.0-0.3); PHOSPHORUS 6.1 mg/dL (2.5-4.9)
[2023-08-18 04:15] LABS: HEPATITIS B SURFACE ANTIGEN NEGATIVE
[2023-08-18 04:40] LABS: BASOPHILS % 0.3 % (0.0-2.0); EOSINOPHILS % 0.2 % (0.0-5.0); HEMATOCRIT. 29.9 % (36.0-48.0); HEMOGLOBIN. 10.1 g/dL (12.0-16.0); LYMPHOCYTES % 10.3 % (20.0-50.0); MEAN CORPUSCULAR HEMOGLOBIN 29.7 pg (28.0-32.0); MEAN CORPUSCULAR HGB CONC 33.6 g/dL (31.0-37.0); MEAN CORPUSCULAR VOLUME 88.3 fL (81.0-99.0); MEAN PLATELET VOLUME 11.5 fl (7.4-10.4); MONOCYTES % 13.8 % (2.0-8.0); NEUTROPHILS % 75.4 % (40.0-76.0); RED BLOOD CELL COUNT 3.39 mill/uL (4.2-5.4); RED CELL DISTRIBUTION WIDTH 14.1 % (11.6-14.6); WHITE BLOOD COUNT 7.6 x1000/uL (4.5-11.0)
[2023-08-18 04:43] LABS: DIFFERENTIAL COMMENT 1
[2023-08-18 04:44] LABS: HEPATITIS C VIR.AB 0.22 INDEXVAL (0.00-0.80)
[2023-08-18 04:46] LABS: PLATELET 23 x1000/uL (130-400)
[2023-08-18] MEDS ORDERED: SODIUM CHLORIDE 0.9% 1,000 ML IV ONE (05:00)
[2023-08-18 05:03] LABS: T4 FREE 1.19 ng/dL (0.76-1.46); THYROID STIMULATING HORMONE 0.68 uIU/mL (0.36-3.74)
[2023-08-18] MEDS: INSULIN LISPRO 100 UNITS/ML SUBCUT SCH ×7 (05:38→20:45)
[2023-08-18] MEDS: INSULIN GLARGINE 100 UNITS/ML SUBCUT SCH (05:38)
[2023-08-18] MEDS ORDERED: INSULIN LISPRO 100 UNITS/ML SUBCUT SCH ×2 (08:20→18:10)
[2023-08-18] MEDS: BLOOD SUGAR DIAGNOSTIC STRIP TEST SCH ×4 (08:24→20:37)
[2023-08-18] MEDS ORDERED: CEFTRIAXONE 1,000 MG in DEXTROSE 5% WATER 50 ML IV SCH (09:00)
[2023-08-18] MEDS: PANTOPRAZOLE SODIUM 40 MG/VIAL IV SCH (10:35)
[2023-08-18 11:23] LABS: POTASSIUM 5.6 mEq/L (3.5-5.1)
[2023-08-18 11:32] LABS: CALCIUM 8.1 mg/dL (8.5-10.1)
[2023-08-18] MEDS ORDERED: CEFTRIAXONE 1GM PREMIX 50 ML IV SCH (12:00)
[2023-08-18 12:02] LABS: CHLORIDE 99 mEq/L (98-107); INDEX HEMOLYSI 1 (1-3); INDEX ICTERIC 1 (1-4); INDEX LIPEMIC 1 (1-3); POTASSIUM 5.1 mEq/L (3.5-5.1); SODIUM 130 mEq/L (136-145)
[2023-08-18 12:27] LABS: ALANINE AMINOTRANSFERASE 14 IU/L (13-61); ALBUMIN 2.2 g/dL (3.4-5.0); ASPARTATE AMINOTRANSFERASE 6 IU/L (15-37); BILIRUBIN TOTAL 0.6 mg/dL (0.1-1.0); CALCIUM 8.1 mg/dL (8.5-10.1); CARBON DIOXIDE 19 mEq/L (21-32); CREATINE KINASE 23 IU/L (26-192); PROTEIN TOTAL 6.1 g/dL (6.0-8.3); TROPONIN I HIGH SENSITIVITY 6 ng/L (<54)
[2023-08-18 13:09] LABS: GLUCOSE 409 mg/dL (70-105); UREA NITROGEN BLOOD 166 mg/dL (7-21)
[2023-08-18 13:10] LABS: CREATININE 7.6 mg/dL (0.6-1.3)
[2023-08-18] MEDS ORDERED: DEXTROSE 50% WATER 50ML SYRINGE IV PRN ×2 (13:45→17:00)
[2023-08-18] MEDS ORDERED: INSULIN LISPRO 100 UNITS/ML SUBCUT NR (13:45)
[2023-08-18] MEDS: SODIUM CHLORIDE 0.9% 1,000 ML IV SCH ×2 (14:07→23:04)
[2023-08-18] MEDS: MEROPENEM 500MG in NORMAL SALINE 50ML IV SCH (14:07)
[2023-08-18] MEDS ORDERED: MEROPENEM 500 MG in SODIUM CHLORIDE 0.9% 50 ML IV SCH (15:00)
[2023-08-18] MEDS ORDERED: BLOOD SUGAR DIAGNOSTIC STRIP TEST SCH ×2 (17:40)
[2023-08-18] MEDS: ACETAMINOPHEN 325MG TABLET PO PRN (18:33)
[2023-08-18 22:40] LABS: HEPATITIS B SURFACE ANTIGEN NEGATIVE
[2023-08-18 23:07] LABS: HEPATITIS C VIR.AB 0.24 INDEXVAL (0.00-0.80)
[2023-08-18 23:08] LABS: HEPATITIS B CORE AB IGM NEGATIVE
[2023-08-18 23:10] LABS: HEPATITIS A AB IGM NEGATIVE (NEGATIVE)
[2023-08-19] VITALS (7 sets, daily range): BP systolic 119–144; BP diastolic 54–87; PULSE 61–77; RESP 18–20; TEMP 97–97.9
[2023-08-19 06:35] LABS: BASOPHILS % 0.4 % (0.0-2.0); EOSINOPHILS % 1.6 % (0.0-5.0); HEMATOCRIT. 31.7 % (36.0-48.0); HEMOGLOBIN. 10.8 g/dL (12.0-16.0); LYMPHOCYTES % 10.6 % (20.0-50.0); MEAN CORPUSCULAR HEMOGLOBIN 30.1 pg (28.0-32.0); MEAN CORPUSCULAR HGB CONC 34.1 g/dL (31.0-37.0); MEAN CORPUSCULAR VOLUME 88.2 fL (81.0-99.0); MONOCYTES % 14.6 % (2.0-8.0); NEUTROPHILS % 72.8 % (40.0-76.0); RED CELL DISTRIBUTION WIDTH 14.4 % (11.6-14.6)
[2023-08-19] MEDS: BLOOD SUGAR DIAGNOSTIC STRIP TEST SCH ×4 (06:36→20:36)
[2023-08-19 06:51] LABS: DIFFERENTIAL COMMENT 1
[2023-08-19] MEDS: INSULIN LISPRO 100 UNITS/ML SUBCUT SCH ×7 (08:10→20:36)
[2023-08-19] MEDS: PANTOPRAZOLE SODIUM 40 MG/VIAL IV SCH (09:18)
[2023-08-19] MEDS: INSULIN GLARGINE 100 UNITS/ML SUBCUT SCH (09:21)
[2023-08-19] MEDS: SODIUM CHLORIDE 0.9% 1,000 ML IV SCH ×2 (09:58→20:36)
[2023-08-19 10:07] LABS: PLATELET 23 x1000/uL (130-400)
[2023-08-19 10:47] LABS: PLATELET 59 x1000/uL (130-400)
[2023-08-19 12:45] LABS: CHLORIDE 109 mEq/L (98-107); INDEX HEMOLYSI 3 (1-3); INDEX ICTERIC 1 (1-4); INDEX LIPEMIC 1 (1-3); SODIUM 136 mEq/L (136-145)
[2023-08-19 12:53] LABS: ALANINE AMINOTRANSFERASE 13 IU/L (13-61); ALBUMIN 2.1 g/dL (3.4-5.0); ASPARTATE AMINOTRANSFERASE 11 IU/L (15-37); BILIRUBIN TOTAL 0.8 mg/dL (0.1-1.0); CALCIUM 7.9 mg/dL (8.5-10.1); CARBON DIOXIDE 19 mEq/L (21-32); GLUCOSE 273 mg/dL (70-105); PROTEIN TOTAL 5.7 g/dL (6.0-8.3)
[2023-08-19 13:06] LABS: CREATININE 5.9 mg/dL (0.6-1.3)
[2023-08-19 13:07] LABS: UREA NITROGEN BLOOD 158 mg/dL (7-21)
[2023-08-19] MEDS ORDERED: SODIUM POLYSTYRENE SULFONATE 15 G/60 ML BOT PO NR (14:00)
[2023-08-19] MEDS: MEROPENEM 500MG in NORMAL SALINE 50ML IV SCH (14:55)
[2023-08-19] MEDS: CITRIC ACID/SODIUM CITRATE SOLN 30ML UDC PO SCH (17:53)
[2023-08-20] VITALS (8 sets, daily range): BP systolic 136–165; BP diastolic 58–74; PULSE 68–76; RESP 20; TEMP 97–97.6
[2023-08-20] MEDS: SODIUM CHLORIDE 0.9% 1,000 ML IV SCH ×2 (05:07→15:58)
[2023-08-20] MEDS: BLOOD SUGAR DIAGNOSTIC STRIP TEST SCH ×4 (07:11→20:26)
[2023-08-20 08:13] LABS: BASOPHILS % 0.1 % (0.0-2.0); EOSINOPHILS % 1.7 % (0.0-5.0); HEMATOCRIT. 27.5 % (36.0-48.0); HEMOGLOBIN. 9.3 g/dL (12.0-16.0); MEAN CORPUSCULAR HEMOGLOBIN 30.2 pg (28.0-32.0); MEAN CORPUSCULAR HGB CONC 33.9 g/dL (31.0-37.0); MEAN CORPUSCULAR VOLUME 89.1 fL (81.0-99.0); MEAN PLATELET VOLUME 10.1 fl (7.4-10.4); MONOCYTES % 11.1 % (2.0-8.0); NEUTROPHILS % 78.1 % (40.0-76.0); PLATELET 68 x1000/uL (130-400); RED BLOOD CELL COUNT 3.09 mill/uL (4.2-5.4); RED CELL DISTRIBUTION WIDTH 14.4 % (11.6-14.6); WHITE BLOOD COUNT 11.1 x1000/uL (4.5-11.0)
[2023-08-20] MEDS: INSULIN LISPRO 100 UNITS/ML SUBCUT SCH ×7 (08:36→20:44)
[2023-08-20] MEDS: CITRIC ACID/SODIUM CITRATE SOLN 30ML UDC PO SCH ×3 (08:38→17:49)
[2023-08-20] MEDS: PANTOPRAZOLE SODIUM 40 MG/VIAL IV SCH (08:38)
[2023-08-20 08:41] LABS: CHLORIDE 113 mEq/L (98-107); INDEX HEMOLYSI 1 (1-3); INDEX ICTERIC 1 (1-4); INDEX LIPEMIC 1 (1-3); SODIUM 141 mEq/L (136-145)
[2023-08-20 08:58] LABS: ALANINE AMINOTRANSFERASE 10 IU/L (13-61); ALBUMIN 2.1 g/dL (3.4-5.0); ASPARTATE AMINOTRANSFERASE 8 IU/L (15-37); BILIRUBIN TOTAL 0.7 mg/dL (0.1-1.0); CARBON DIOXIDE 18 mEq/L (21-32); CREATININE 4.7 mg/dL (0.6-1.3); GLUCOSE 160 mg/dL (70-105); PHOSPHORUS 5.6 mg/dL (2.5-4.9); PROTEIN TOTAL 5.6 g/dL (6.0-8.3)
[2023-08-20 09:06] LABS: UREA NITROGEN BLOOD 136 mg/dL (7-21)
[2023-08-20] MEDS: INSULIN GLARGINE 100 UNITS/ML SUBCUT SCH (10:27)
[2023-08-20] MEDS: MEROPENEM 500MG in NORMAL SALINE 50ML IV SCH (15:57)
[2023-08-20] MEDS ORDERED: AZITHROMYCIN 500 MG TABLET PO NR (18:00)
[2023-08-21] VITALS (7 sets, daily range): BP systolic 148–171; BP diastolic 62–79; PULSE 65–74; RESP 17–20; TEMP 97.3–99.9
[2023-08-21] MEDS: SODIUM CHLORIDE 0.9% 1,000 ML IV SCH ×3 (02:23→20:58)
[2023-08-21] MEDS: BLOOD SUGAR DIAGNOSTIC STRIP TEST SCH ×4 (06:42→20:57)
[2023-08-21] MEDS: AZITHROMYCIN 500 MG TABLET PO SCH (08:29)
[2023-08-21] MEDS: CITRIC ACID/SODIUM CITRATE SOLN 30ML UDC PO SCH ×4 (08:29→17:00)
[2023-08-21] MEDS: PANTOPRAZOLE SODIUM 40 MG/VIAL IV SCH (08:29)
[2023-08-21] MEDS: INSULIN LISPRO 100 UNITS/ML SUBCUT SCH ×7 (08:31→20:57)
[2023-08-21] MEDS ORDERED: FAMOTIDINE 20MG/2ML VIAL IV SCH (09:00)
[2023-08-21] MEDS: INSULIN GLARGINE 100 UNITS/ML SUBCUT SCH (10:52)
[2023-08-21] MEDS: AMLODIPINE 10MG TABLET PO SCH (10:53)
[2023-08-21 11:05] LABS: EOSINOPHILS % 2.1 % (0.0-5.0); HEMATOCRIT. 27.4 % (36.0-48.0); HEMOGLOBIN. 8.9 g/dL (12.0-16.0); LYMPHOCYTES % 10.5 % (20.0-50.0); MEAN CORPUSCULAR HEMOGLOBIN 29.1 pg (28.0-32.0); MEAN CORPUSCULAR HGB CONC 32.5 g/dL (31.0-37.0); MEAN CORPUSCULAR VOLUME 89.5 fL (81.0-99.0); MEAN PLATELET VOLUME 8.9 fl (7.4-10.4); MONOCYTES % 6.6 % (2.0-8.0); NEUTROPHILS % 80.8 % (40.0-76.0); PLATELET 100 x1000/uL (130-400); RED BLOOD CELL COUNT 3.07 mill/uL (4.2-5.4); RED CELL DISTRIBUTION WIDTH 14.1 % (11.6-14.6); WHITE BLOOD COUNT 10.4 x1000/uL (4.5-11.0)
[2023-08-21 11:21] LABS: POTASSIUM 3.3 mEq/L (3.5-5.1)
[2023-08-21 11:26] LABS: CALCIUM 7.8 mg/dL (8.5-10.1); CREATININE 3.3 mg/dL (0.6-1.3)
[2023-08-21] MEDS: MEROPENEM 500MG in NORMAL SALINE 50ML IV SCH (15:00)
[2023-08-21] MEDS: CARVEDILOL 3.125 MG TABLET PO SCH (20:59)
[2023-08-22] VITALS (7 sets, daily range): BP systolic 127–146; BP diastolic 55–86; PULSE 62–107; RESP 18–21; TEMP 97.1–98.2; O2SAT 97
[2023-08-22 06:02] LABS: EOSINOPHILS % 3.1 % (0.0-5.0); HEMATOCRIT. 26.1 % (36.0-48.0); HEMOGLOBIN. 8.8 g/dL (12.0-16.0); LYMPHOCYTES % 11.4 % (20.0-50.0); MEAN CORPUSCULAR HGB CONC 33.8 g/dL (31.0-37.0); MEAN CORPUSCULAR VOLUME 88.9 fL (81.0-99.0); MEAN PLATELET VOLUME 8.8 fl (7.4-10.4); NEUTROPHILS % 77.5 % (40.0-76.0); PLATELET 129 x1000/uL (130-400); RED BLOOD CELL COUNT 2.93 mill/uL (4.2-5.4); RED CELL DISTRIBUTION WIDTH 13.7 % (11.6-14.6); WHITE BLOOD COUNT 11.1 x1000/uL (4.5-11.0)
[2023-08-22 06:34] LABS: CALCIUM 7.7 mg/dL (8.5-10.1); POTASSIUM 3.3 mEq/L (3.5-5.1)
[2023-08-22 06:38] LABS: CREATININE 2.9 mg/dL (0.6-1.3)
[2023-08-22] MEDS: SODIUM CHLORIDE 0.9% 1,000 ML IV SCH (07:45)
[2023-08-22] MEDS: INSULIN LISPRO 100 UNITS/ML SUBCUT SCH ×6 (07:50→17:26)
[2023-08-22] MEDS: BLOOD SUGAR DIAGNOSTIC STRIP TEST SCH ×3 (07:56→17:06)
[2023-08-22] MEDS ORDERED: POTASSIUM CHLORIDE 20MEQ TABLET SR PO NR (08:00)
[2023-08-22] MEDS: AZITHROMYCIN 500 MG TABLET PO SCH (08:56)
[2023-08-22] MEDS: CARVEDILOL 3.125 MG TABLET PO SCH ×2 (08:57→20:36)
[2023-08-22] MEDS: PANTOPRAZOLE SODIUM 40 MG/VIAL IV SCH ×2 (08:57→09:00)
[2023-08-22] MEDS: CITRIC ACID/SODIUM CITRATE SOLN 30ML UDC PO SCH ×4 (08:57→16:51)
[2023-08-22] MEDS: AMLODIPINE 10MG TABLET PO SCH (08:57)
[2023-08-22] MEDS: INSULIN GLARGINE 100 UNITS/ML SUBCUT SCH (10:00)
[2023-08-22] MEDS: MEROPENEM 500MG in NORMAL SALINE 50ML IV SCH (14:37)
== END 2023-08-22 23:53 | disposition home or self-care (01) | DRG 871 ==
LOC: ER 11:03 → EDBEDREQTM 18:46 → EDBEDREQ 18:46 → 7WST 21:37 → 6WST 08-21 11:16
PROVIDERS: ADMIT Hospitalist; ATTEND Hospitalist
PROC: 30233R1 Transfusion of Nonautologous Platelets into Peripheral Vein, Percutaneous Approach (ICD-10-PCS; principal; 2023-08-18)
PROC: 5A1D70Z Performance of Urinary Filtration, Intermittent, Less than 6 Hours Per Day (ICD-10-PCS; 2023-08-18)
DX: A41.9 Sepsis, unspecified organism (principal); E11.00 Type 2 diabetes mellitus with hyperosmolarity without nonketotic hyperglycemic-hyperosmolar coma (NKHHC); E43 Unspecified severe protein-calorie malnutrition; J18.9 Pneumonia, unspecified organism; G92.8 Other toxic encephalopathy; J96.01 Acute respiratory failure with hypoxia; N18.6 End stage renal disease; N17.0 Acute kidney failure with tubular necrosis; E87.1 Hypo-osmolality and hyponatremia; E87.20 Acidosis, unspecified; I13.2 Hypertensive heart and chronic kidney disease with heart failure and with stage 5 chronic kidney disease, or end stage renal disease; D69.6 Thrombocytopenia, unspecified; J44.9 Chronic obstructive pulmonary disease, unspecified; E66.9 Obesity, unspecified; E87.5 Hyperkalemia; E83.39 Other disorders of phosphorus metabolism; N20.0 Calculus of kidney; K21.9 Gastro-esophageal reflux disease without esophagitis; D64.9 Anemia, unspecified; G90.8 Other disorders of autonomic nervous system; I50.9 Heart failure, unspecified; E11.22 Type 2 diabetes mellitus with diabetic chronic kidney disease; E78.00 Pure hypercholesterolemia, unspecified; F03.90 Unspecified dementia, unspecified severity, without behavioral disturbance, psychotic disturbance, mood disturbance, and anxiety; R29.6 Repeated falls; Z68.34 Body mass index [BMI] 34.0-34.9, adult; Z79.4 Long term (current) use of insulin; Z85.3 Personal history of malignant neoplasm of breast; Z86.718 Personal history of other venous thrombosis and embolism; Z87.440 Personal history of urinary (tract) infections; Z87.442 Personal history of urinary calculi; Z99.2 Dependence on renal dialysis; Z79.899 Other long term (current) drug therapy
CPT/HCPCS: 36415; 71045; 74176; 76700; 80048; 80053; 80061; 81003; 82010; 82550; 82728; 82962; 83036; 83540; 83550; 83605; 83735; 83930; 84100; 84145; 84439; 84443; 84484; 85025; 85049; 85379; 86705; 86709; 86803; 86850; 86900; 87077; 87340; 93005; 93306; 93880; 93970; 94660; 97162; 97166; 97530; 99285; C1893; C9113; J0456; J0696; J1815; J2185; J7030; J7060; P9034; A4315